=== PATIENT | female | born 1960 | race Asian ===

== ENCOUNTER 2022-07-01 08:21 | Outpatient (REF) | payer OTHER, SELFPAY ==
[2022-07-01 11:32] LABS: MANUAL DIFF FLAG NO
[2022-07-01 11:50] LABS: Basophils Percent Auto 0.6 % (0-2); Eosinophils Absolute Auto 0.1 X10*3/uL (0.0-0.4); Eosinophils Percent Auto 1.6 % (0-4); Hematocrit 40.4 % (37.0-47.0); Hemoglobin 13.4 g/dl (12.0-16.0); Imm Gran Abs Auto 0.02 X10*3/uL (0.00-0.03); Imm Gran Pct Auto 0.3 % (0.0-0.4); Lymphocytes Absolute Auto 2.1 X10*3/uL (1.2-4.9); Lymphocytes Percent Auto 30.5 % (20-40); Mean Corpuscular HGB Conc 33.2 g/dl (31.0-35.0); Mean Corpuscular Hemoglobin 30.7 pg (27.0-33.0); Mean Corpuscular Volume 92.7 fL (80.0-98.0); Mean Platelet Volume 10.5 fL (9.4-12.3); Monocytes Absolute Auto 0.4 X10*3/uL (0.1-1.2); Monocytes Percent Auto 6.1 % (2-11); Neutrophils Absolute Auto 4.3 x10*3/uL (2.0-8.3); Neutrophils Percent Auto 60.9 % (45-73); Platelet Count 424 X10*3/uL (160-400); Red Blood Count 4.36 X10*6/uL (4.20-5.50); Red Cell Distribution Width 13.3 % (11.0-16.0)
[2022-07-01 11:58] LABS: Alanine Aminotransferase 24 U/L (0-31); Albumin Level 4.6 g/dL (3.5-5.0); Alkaline Phosphatase 91 U/L (39-117); Anion Gap 17 (12-20); Aspartate Amino Transferase 22 U/L (5-31); Bilirubin Total 0.7 mg/dL (0.0-1.0); Blood Urea Nitrogen 13 mg/dL (9-16); Calcium 9.5 mg/dL (8.4-10.2); Carbon Dioxide 26 mmol/L (22-29); Chloride 103 mmol/L (96-108); Cholesterol 185 mg/dL; Estimated Glomerular Filt Rate > 60; Glucose Fasting 107 mg/dL (60-99); HDL Cholesterol 65 mg/dL; LDL Cholesterol Calculated 94 mg/dl; Potassium 4.6 mmol/L (3.3-5.1); Sodium 141 mmol/L (135-145); Total Protein 7.9 g/dL (6.5-8.0); Triglycerides 131 mg/dL
[2022-07-01 12:22] LABS: TSH reflex Free T4 1.99 uIU/mL (0.32-4.0)
== END 2022-07-01 08:22 | disposition home or self-care (01) ==
LOC: HO.HMGCLDS 08:21
PROVIDERS: PCP Internal Medicine; Visit Provider Internal Medicine
DX: R01.1 Cardiac murmur, unspecified (principal); I10 Essential (primary) hypertension; E78.5 Hyperlipidemia, unspecified
CPT/HCPCS: 36415; 80053; 80061; 84443; 85025

== ENCOUNTER → 2022-07-13 14:56 | Outpatient (REF) | payer OTHER, SELFPAY ==
--- NOTE | 2022-07-13 14:58 | CA_ITS ---
Transthoracic Echocardiogram Patient (Last, First, Middle): Ibeth Farley, Gender: Female Date of : 1960 Age: 61 Procedure Date: 07/13/2022 Procedure Type: Transthoracic Echocardiogram Location: OP Height: 157.48 cm Weight: 70.31 kg BSA: 1.72 m2 Heart Rate: 70 bpm BP: 144 / 80 mmHg Rare/Endangered Species Specialist: SB Referring MD: Cristel Levine MD Symptoms: R01.1 - Cardiac murmur, unspecified Study Quality: Adequate ECG Rhythm: Sinus Conclusions: - The left ventricular systolic function is normal. The calculated ejection fraction is 67% by biplane method. - No obvious valvular pathology seen on this study. Findings Left Ventricle Normal left ventricular cavity size. There is normal left ventricular wall thickness. The left ventricular systolic function is normal. The calculated ejection fraction is 67% by biplane method. There is no evidence of regional wall motion abnormalities. Diastolic function is normal for age. LV peak GLS -20.5%. Right Ventricle Normal right ventricular cavity size and systolic function. Atria Both atria are normal in size. Aortic Valve There is a normal trileaflet aortic valve. There is no aortic valve stenosis. There is no aortic valve regurgitation. Mitral Valve The mitral valve appears normal. There is trace mitral valve regurgitation. There is no mitral valve stenosis. Pulmonic Valve The pulmonic valve is likely normal. Tricuspid Valve Normal tricuspid valve structure. There is no tricuspid valve regurgitation. Tricuspid regurgitation envelope is inadequate for calculation of right ventricular systolic pressure. Great Vessels The asc aorta is normal in size. Venous The inferior vena cava is normal in size and collapses greater than 50% with inspiration. Pericardium/Pleural There is a trivial pericardial effusion. Prior Study Comparison No prior study available for comparison. Recommendations, Care & Conclusions No obvious valvular pathology seen on this study. Measurements 2D Linear Measurements IVSd: 0.94 0.6-0.9/0.6-1.0 cm LVIDd: 3.78 3.9-5.3/4.2-5.9 cm LVIDd Index: 2.20 2.4-3.2/2.2-3.1 cm/m2 LVIDs: 2.16 2.0-3.6 cm LVPWd: 0.89 0.7-1.1 cm Ao Root: 2.90 2.1-3.5 cm LA Diam: 3.60 2.7-3.8/3.0-4.0 cm LAIDs Index: 2.09 1.5-2.3 cm/m2 LV Mass: 127.16 67-162/88-224 g LV Mass Index: 73.93 43-95/49-115 g/m2 LVOT Diam: 1.90 3.0+(-)1.3 cm 2D Systolic Function EF 4C: 67.60 >55% EF 2C: 66.70 >55% EF BiP: 67.20 >55% Mitral Valve MV Pk E: 0.65 MV PK A: 0.42 MV Decel Time: 222.00 E/A: 1.50 E'Lateral: 9.14 E'Medial: 6.09 E/E' Med: 10.70 E/E' Lat: 7.10 PHT: 65.00 MVA PHT: 3.38 Decel [place]: 2.93 Aortic Valve AoV Pk Ian: 1.25 AoV Pk Grad: 6.00 YASMANI: 2.43 LVOT LVOT Pk Ian: 1.07 LVOT Mn Ian: 0.71 LVOT VTI: 0.25 LVOT Pk Grad: 5.00 LVOT Mn Grad: 2.00 LVOT Diam: 1.90 LVOT Area: 2.84 Diastolic Function MV Pk E: 0.65 MV Pk A: 0.42 E/A: 1.50 E'Medial: 6.09 E/E' Med: 10.70 E' Laterial: 9.14 E/E' Lat: 7.10 Right Ventricle TAPSE (mm): 22.80 TVS' Ian: 11.50 Tricuspid Valve RA Press: 3.00 Great Vessels Aorta Ao Root-2D: 2.90 2.0-3.7 cm Ao Asc: 3.00 2.1-3.4 cm Pulmonary Veins Pulm Vein S/D 1.30 Pulmonary Valve PV Pk Ian: 0.83 Peak PV Grad: 3.00 Updated in Other Vendor System with Status of Final Chandler Neal MD electronically signed on 07/15/2022 12:41:05 PM with status of Final
== END ==
LOC: HO.CARD 14:56
PROVIDERS: Visit Provider Internal Medicine
DX: R01.1 Cardiac murmur, unspecified (principal); I10 Essential (primary) hypertension; E78.5 Hyperlipidemia, unspecified
CPT/HCPCS: 93306; 93356

== ENCOUNTER 2022-10-28 15:27 | Outpatient (REF) | payer OTHER, SELFPAY ==
--- NOTE | ~2022-10-28 | XR_ITS ---
EXAMINATION: XR HIP, RIGHT CLINICAL INFORMATION: 62-year-old female patient with pain in the right hip. COMPARISON: None TECHNIQUE: AP and frog leg lateral views of the right hip. FINDINGS: Juxta articular cortical irregularity) sclerosis involves the medial aspect of the right femoral head. The joint space is relatively well-preserved. There is no evidence of fracture or dislocation. The soft tissues are unremarkable. XR/XR hip RT min 2V IMPRESSION: Juxta articular cortical irregularity of the right femoral head. Early AVN should be considered.
== END 2022-10-28 15:28 | disposition home or self-care (01) ==
LOC: HO.HMGCX 15:27
PROVIDERS: PCP Internal Medicine; Visit Provider Internal Medicine
DX: M25.551 Pain in right hip (principal)
CPT/HCPCS: 73502

== ENCOUNTER 2022-12-08 07:44 | Outpatient (REF) | payer OTHER, SELFPAY ==
--- NOTE | ~2022-12-08 | XR_ITS ---
EXAMINATION: XR PELVIS CLINICAL INFORMATION: Hip pain COMPARISON: Hip radiographs 10/28/2022 TECHNIQUE: AP view of the pelvis. FINDINGS: No acute fracture or dislocation. Hip joint spaces are maintained. The previously described cortical irregularity of the right femoral head was more conspicuous on prior dedicated hip radiographs, and repeat dedicated radiographs of the right hip could be considered if warranted for further evaluation. Soft tissues are unremarkable. XR/XR pelvis 1-2V IMPRESSION: 1. The previously described cortical irregularity of the right femoral head was more conspicuous on prior dedicated hip radiographs, and repeat dedicated radiographs of the right hip could be considered if warranted for further evaluation.
== END 2022-12-08 07:45 | disposition home or self-care (01) ==
LOC: HO.HOSX 07:44
PROVIDERS: Visit Provider Physician Assistant
DX: M70.61 Trochanteric bursitis, right hip (principal)
CPT/HCPCS: 72170; 99202

== ENCOUNTER 2022-12-26 13:39 | Outpatient (REF) | payer OTHER, SELFPAY ==
[2022-12-26 16:26] LABS: MANUAL DIFF FLAG NO
[2022-12-26 16:32] LABS: Basophils Percent Auto 0.5 % (0-2); Eosinophils Absolute Auto 0.1 X10*3/uL (0.0-0.4); Eosinophils Percent Auto 2.4 % (0-4); Hematocrit 41.4 % (37.0-47.0); Hemoglobin 13.5 g/dl (12.0-16.0); Imm Gran Abs Auto 0.01 X10*3/uL (0.00-0.03); Imm Gran Pct Auto 0.2 % (0.0-0.4); Lymphocytes Absolute Auto 2.1 X10*3/uL (1.2-4.9); Lymphocytes Percent Auto 39.2 % (20-40); Mean Corpuscular HGB Conc 32.6 g/dl (31.0-35.0); Mean Corpuscular Hemoglobin 30.5 pg (27.0-33.0); Mean Corpuscular Volume 93.5 fL (80.0-98.0); Mean Platelet Volume 10.4 fL (9.4-12.3); Monocytes Absolute Auto 0.4 X10*3/uL (0.1-1.2); Monocytes Percent Auto 6.8 % (2-11); Neutrophils Absolute Auto 2.8 x10*3/uL (2.0-8.3); Neutrophils Percent Auto 50.9 % (45-73); Platelet Count 371 X10*3/uL (160-400); Red Blood Count 4.43 X10*6/uL (4.20-5.50); Red Cell Distribution Width 13.3 % (11.0-16.0); White Blood Count 5.5 X10*3/uL (4.8-10.8)
[2022-12-26 16:55] LABS: Alanine Aminotransferase 18 U/L (0-31); Albumin Level 4.4 g/dL (3.5-5.0); Alkaline Phosphatase 81 U/L (39-117); Anion Gap 13 (12-20); Aspartate Amino Transferase 20 U/L (5-31); Bilirubin Total 0.6 mg/dL (0.0-1.0); Blood Urea Nitrogen 13 mg/dL (9-16); Calcium 9.8 mg/dL (8.4-10.2); Carbon Dioxide 27 mmol/L (22-29); Chloride 105 mmol/L (96-108); Cholesterol 177 mg/dL; Estimated Glomerular Filt Rate > 60; Glucose Fasting 102 mg/dL (60-99); HDL Cholesterol 64 mg/dL; LDL Cholesterol Calculated 95 mg/dl; Potassium 4.4 mmol/L (3.3-5.1); Sodium 141 mmol/L (135-145); Total Protein 7.4 g/dL (6.5-8.0); Triglycerides 92 mg/dL
[2022-12-26 17:10] LABS: TSH reflex Free T4 0.84 uIU/mL (0.32-4.0)
== END 2022-12-26 13:40 | disposition home or self-care (01) ==
LOC: HO.HMGCLDS 13:39
PROVIDERS: PCP Internal Medicine; Visit Provider Internal Medicine
DX: I10 Essential (primary) hypertension (principal); E78.5 Hyperlipidemia, unspecified
CPT/HCPCS: 36415; 80053; 80061; 84443; 85025

== ENCOUNTER 2023-04-03 14:07 | Outpatient (REF) | payer OTHER, SELFPAY ==
[2023-04-04 02:31] LABS: Anion Gap 13 (12-20); Blood Urea Nitrogen 11 mg/dL (9-16); Calcium 9.4 mg/dL (8.4-10.2); Carbon Dioxide 27 mmol/L (22-29); Chloride 106 mmol/L (96-108); Estimated Glomerular Filt Rate > 60; Glucose Random 102 mg/dL (60-115); Potassium 4.7 mmol/L (3.3-5.1); Sodium 141 mmol/L (135-145)
== END 2023-04-03 14:08 | disposition home or self-care (01) ==
LOC: HO.HMGCLDS 14:07
PROVIDERS: PCP Internal Medicine; Visit Provider Internal Medicine
DX: I10 Essential (primary) hypertension (principal)
CPT/HCPCS: 36415; 80048

== ENCOUNTER 2023-04-05 13:42 | Outpatient (AMB) | payer OTHER, SELFPAY ==
[2023-04-05 13:43] VITALS: BP 136/80; PULSE 70; O2SAT 98; BMI 26.7
--- NOTE | 2023-04-05 13:43 | A.OFFPC_ITS ---
Vital Signs 04/05/23 13:43 Height 5 ft 2 in Weight 146 lb BMI 26.7 BP 136/80 Blood Pressure Location Lt brachial Position Sitting Pulse 70 Pulse Source Pulse Oximeter Pulse Oximetry (%) 98 Oxygen Delivery Method Room Air Intake Visit Reasons: 3 month follow up labs Intake Note: Pt is here today for 3 months follow up visit on labs. Allergies No Known Allergies [No Known Allergies*] Allergy (Verified 04/05/23 13:48) Medication List - Last Reconciled 04/05/23 by Cristel Levine MD amlodipine 5 mg PO DAILY atorvastatin 20 mg PO DAILY metoprolol succinate ER 100 mg PO DAILY valsartan 160 mg PO DAILY Tobacco use date assessed: 04/05/23 Dental Screening Dental Screen Date: 04/05/23 Did you have a dental visit in the last 12 months?: Yes Did you have a dental problem in the last 6 months where you did not have access to dental care?: No Was dental information given to patient?: Patient has dentist HPI 3 month follow up labs HPI Details Patient presents for the follow-up on hypertension and hyperlipidemia [facility] Medical History High blood pressure High cholesterol Family History Brother Mental health disorder Mother Ovarian ca Social History Household Members Other:: , 1 adult son, disabled Housing: House Patient Tobacco Use Status: Never used Tobacco e-Cigarette/Vaping Use: Never Used Current occupational status: disabled Cognitive needs: No Hearing needs: No Vision needs: Yes Questionnaire PHQ-9 Over the last 2 weeks, how often have you been bothered by any of the following problems? 1. Little interest or pleasure in doing things: nearly every day 2. Feeling down, depressed, or hopeless: several days 3. Trouble falling or staying asleep, or sleeping too much: nearly every day 4. Feeling tired or having little energy: nearly every day 5. Poor appetite or overeating: several days 6. Feeling bad about yourself - or that you are a failure or have let yourself or your family down: several days 7. Trouble concentrating on things, such as reading the newspaper or watching television: several days 8. Moving or speaking so slowly that other people could have noticed. Or the opposite - being so fidgety or restless that you have been moving around a lot more than usual: not at all 9. Thoughts that you would be better off or of hurting yourself in some way: not at all Total score: 13 Depression Screening Interpretation: Negative Source: Developed by Drs. Russell Lockett, Sharmila De Leon, Aaron Morataya and colleagues, with an educational mora from [employer]. Thrive Questionnaire Date Thrive assessed: 04/05/23 I am a: Patient What is your living situation today?: I have a steady place to live Within the past 12 months, did the food you bought not last and you didn't have the money to get more?: Never true Within the past 12 months, did you worry whether your food would run out before you got money to buy more?: Never true Do you have trouble getting transportation to medical appointments?: No Do you have trouble paying your heating and electricity bill?: No Do you have trouble taking care of your child, family member or friend?: No Do you have trouble with day-to-day activities such as bathing, preparing meals, shopping, managing finances, etc.?: No Are you currently unemployed and looking for a job?: No Are you interested in more education?: No Please select the resources that you would like help with: None Currently or been in a relationship where the following occur: no concerns reported AUDIT C Alcohol Use Questionnaire (AUDIT-C) 1. How often do you have a drink containing alcohol?: Never 3. How often do you have six or more drinks on one occasion?: Never Total Score: 0 VICKI-7 AMB Questionnaire VICKI-7 Date VICKI - 7 assessed: 04/05/23 Feeling nervous, anxious, or on edge: 0 = Not at all Not being able to stop or control worryin = Not at all Worrying too much about different things: 0 = Not at all Trouble relaxin = Not at all Being so restless that it is hard to sit still: 0 = Not at all Becoming easily annoyed or irritable: 0 = Not at all Feeling afraid as if something awful might happen: 0 = Not at all Total VICKI-7 score (0-4 normal; 5-9 mild; 10-14 moderate; 15-21 severe): 0 Source: Developed by Drs. Russell Lockett, Sharmila De Leon, Aaron Morataya and colleagues, with an educational mora from [employer]. Review of Systems Const All systems reviewed & are unremarkable except as noted in HPI and below Reports no additional complaints Eyes Reports no additional complaints ENT Reports no additional complaints Card Reports no additional complaints Resp Reports no additional complaints GI Reports no additional complaints Reports no additional complaints Physical exam (Primary Care) Vital Signs: Last Vital Signs Pulse 70 04/05/23 13:43 BP 136/80 04/05/23 13:43 Pulse Ox 98 04/05/23 13:43 Oxygen Delivery Method Room Air 04/05/23 13:43 BMI result Body Mass Index 26.7 Tobacco/Smoking Status: Tobacco use Status Tobacco use date assessed 04/05/23 04/05/23 13:50 Patient Tobacco Use Status Never used Tobacco 04/05/23 13:50 e-Cigarette/Vaping Use Never Used 04/05/23 13:43 PHQ-9: PHQ-9 Score PHQ-9: Total score 13 04/05/23 13:52 Depression Screening Interpretation: Negative Thrive Assessment: Date of Thrive Assessment Date Thrive assessed 04/05/23 04/05/23 13:52 Currently or been in a relationship where the following occur: no concerns reported Const General: no acute distress HENMT Throat: Yes posterior oropharynx normal Resp Effort & Inspection: normal respiratory effort Auscultation: clear to auscultation bilaterally Cardio Rhythm: regular rhythm Heart sounds: S1 normal heart sound present and S2 normal heart sound present GI Inspection: Yes normal to inspection Palpation (GI): Soft to palpation Percussion: Yes normal to percussion Auscultation: normal bowel sounds Assessment and Plan Assessment & Plan (1) Hx of colonoscopy: Comment: 2015, Dr. Huerta Code(s): Z98.890 - Other specified postprocedural states (2) HTN (hypertension): Code(s): I10 - Essential (primary) hypertension Plan: Add 5 mg of amlodipine to current medications, follow-up in June for physical with fasting labs before (3) Hyperlipidemia: Code(s): E78.5 - Hyperlipidemia, unspecified Plan: Continue statin low-cholesterol Orders: Orders Comprehensive [place]. Panel Fast 3 Months E78.5 - Hyperlipidemia, unspecified, I10 - Essential (primary) hypertension Lipid Panel 3 Months E78.5 - Hyperlipidemia, unspecified, I10 - Essential (primary) hypertension Complete Blood Count Auto Diff 3 Months E78.5 - Hyperlipidemia, unspecified, I10 - Essential (primary) hypertension Medications: New amlodipine 5 mg PO DAILY 90 tabs 0RF Coding Level of Care Code Est Pt Level 3 (44542) Diagnoses Hx of colonoscopy Z98.890 HTN (hypertension) I10 Hyperlipidemia E78.5
== END 2023-04-05 14:24 | disposition home or self-care (01) ==
PROVIDERS: Visit Provider Internal Medicine
DX: Z98.890 Other specified postprocedural states (principal); I10 Essential (primary) hypertension; E78.5 Hyperlipidemia, unspecified
CPT/HCPCS: 99213

== ENCOUNTER 2023-06-12 13:36 | Outpatient (REF) | payer OTHER, SELFPAY ==
[2023-06-12 16:32] LABS: MANUAL DIFF FLAG NO
[2023-06-12 16:51] LABS: Alanine Aminotransferase 24 U/L (0-31); Albumin Level 4.2 g/dL (3.5-5.0); Alkaline Phosphatase 84 U/L (39-117); Anion Gap 11 (12-20); Aspartate Amino Transferase 23 U/L (5-31); Bilirubin Total 0.5 mg/dL (0.0-1.0); Blood Urea Nitrogen 13 mg/dL (9-16); Calcium 9.5 mg/dL (8.4-10.2); Carbon Dioxide 27 mmol/L (22-29); Chloride 106 mmol/L (96-108); Cholesterol 163 mg/dL (<200); Estimated Glomerular Filt Rate > 60; Glucose Fasting 100 mg/dL (60-99); HDL Cholesterol 59 mg/dL (>40); LDL Cholesterol Calculated 79 mg/dL (<100); Potassium 3.8 mmol/L (3.3-5.1); Sodium 140 mmol/L (135-145); Total Protein 7.4 g/dL (6.5-8.0); Triglycerides 127 mg/dL (<150)
[2023-06-12 16:54] LABS: Basophils Percent Auto 0.7 % (0-2); Eosinophils Absolute Auto 0.2 X10*3/uL (0.0-0.4); Eosinophils Percent Auto 2.7 % (0-4); Hemoglobin 12.9 g/dl (12.0-16.0); Imm Gran Abs Auto 0.01 X10*3/uL (0.00-0.03); Imm Gran Pct Auto 0.2 % (0.0-0.4); Lymphocytes Absolute Auto 2.2 X10*3/uL (1.2-4.9); Lymphocytes Percent Auto 36.3 % (20-40); Mean Corpuscular HGB Conc 33.1 g/dl (31.0-35.0); Mean Corpuscular Hemoglobin 30.5 pg (27.0-33.0); Mean Corpuscular Volume 92.2 fL (80.0-98.0); Mean Platelet Volume 10.2 fL (9.4-12.3); Monocytes Absolute Auto 0.4 X10*3/uL (0.1-1.2); Monocytes Percent Auto 6.8 % (2-11); Neutrophils Absolute Auto 3.2 x10*3/uL (2.0-8.3); Neutrophils Percent Auto 53.3 % (45-73); Platelet Count 387 X10*3/uL (160-400); Red Blood Count 4.23 X10*6/uL (4.20-5.50); Red Cell Distribution Width 13.4 % (11.0-16.0); White Blood Count 5.9 X10*3/uL (4.8-10.8)
== END 2023-06-12 13:37 | disposition home or self-care (01) ==
LOC: HO.HMGCLDS 13:36
PROVIDERS: PCP Internal Medicine; Visit Provider Internal Medicine
DX: I10 Essential (primary) hypertension (principal); E78.5 Hyperlipidemia, unspecified
CPT/HCPCS: 36415; 80053; 80061; 85025

== ENCOUNTER 2023-07-17 11:18 | Outpatient (AMB) | payer OTHER, SELFPAY ==
[2023-07-17 11:38] VITALS: BP 122/78; PULSE 74; O2SAT 100; BMI 27.1
--- NOTE | 2023-07-17 11:38 | A.OFFPC_ITS ---
Vital Signs 07/17/23 11:38 Height 5 ft 2 in Weight 148 lb BMI 27.1 BP 122/78 Blood Pressure Location Lt brachial Position Sitting Pulse 74 Pulse Source Pulse Oximeter Pulse Oximetry (%) 100 Oxygen Delivery Method Room Air Intake Visit Reasons: Annual PE Intake Note: Pt is here today for PE. Allergies No Known Allergies [No Known Allergies*] Allergy (Verified 07/17/23 11:43) Medication List - Last Reconciled 07/17/23 by Cristel Levine MD amlodipine 5 mg PO DAILY atorvastatin 20 mg PO DAILY metoprolol succinate ER 100 mg PO DAILY valsartan 160 mg PO DAILY Tobacco use date assessed: 07/17/23 Dental Screening Dental Screen Date: 07/17/23 Did you have a dental visit in the last 12 months?: Yes Did you have a dental problem in the last 6 months where you did not have access to dental care?: No Was dental information given to patient?: Patient has dentist HPI Annual PE HPI Details Pt presents for PE. PFSH Medical History High blood pressure High cholesterol Family History Brother Mental health disorder Mother Ovarian ca Household Members Other:: , 1 adult son, disabled Housing: House Patient Tobacco Use Status: Never used Tobacco e-Cigarette/Vaping Use: Never Used Current occupational status: disabled Cognitive needs: No Hearing needs: No Vision needs: Yes Questionnaire Thrive Questionnaire Date Thrive assessed: 04/05/23 VICKI-7 AMB Questionnaire VICKI-7 Date VICKI - 7 assessed: 04/05/23 Source: Developed by Drs. Russell Lockett, Sharmila De Leon, Aaron Morataya and colleagues, with an educational mora from [employer]. Review of Systems Const All systems reviewed & are unremarkable except as noted in HPI and below Reports no additional complaints Eyes Reports no additional complaints ENT Reports no additional complaints Card Reports no additional complaints Resp Reports no additional complaints GI Reports no additional complaints Reports no additional complaints Physical exam (Primary Care) Vital Signs: Last Vital Signs Pulse 74 07/17/23 11:38 BP 122/78 07/17/23 11:38 Pulse Ox 100 07/17/23 11:38 Oxygen Delivery Method Room Air 07/17/23 11:38 BMI result Body Mass Index 27.1 Tobacco/Smoking Status: Tobacco use Status Tobacco use date assessed 07/17/23 07/17/23 11:46 Patient Tobacco Use Status Never used Tobacco 07/17/23 11:46 e-Cigarette/Vaping Use Never Used 07/17/23 11:46 Thrive Assessment: Date of Thrive Assessment Date Thrive assessed 04/05/23 07/17/23 11:46 Const General: no acute distress HENMT Head: Yes normal to inspection General nose exam: Normal external nose present Face and sinus: Yes normal facial exam Throat: Yes posterior oropharynx normal Eyes General: appearance normal, both eyes and all related structures Neck Neck: Yes no lymphadenopathy and Yes supple Resp Effort & Inspection: normal respiratory effort Auscultation: clear to auscultation bilaterally Cardio Rhythm: regular rhythm Heart sounds: S1 normal heart sound present and S2 normal heart sound present GI Inspection: Yes normal to inspection Palpation (GI): Soft to palpation Percussion: Yes normal to percussion Auscultation: normal bowel sounds Office Procedures Flu Questionnaire Does the patient have a severe egg allergy?: No Does the patient have severe life threatening allergies?: No Does the patient have a fever or illness today?: No Has the patient ever had Guillain-[place] Syndrome?: No Has the patient ever had any past reaction to a flu shot?: No Immunizations flu vacc [id number] 6mos up(PF) 60 mcg(15 mcgx4)/0.5 mL IM syringe Performing Provider: Cristel Levine MD Performing Location: [facility] Administered by: NASIM Garcia on 07/17/23 11:53 Dose Route Admin Location Dispensed Lot Number Expiration Date NDC [employer] 0.5 mL IM Left Deltoid 0.5 mL [id number] 02/18/24 [id number] [employer] VIS Given Date VIS Provided VIS Publication Date 07/17/23 Single Vaccine 21 Eligibility Eligibility Date Funding Source Not VFC Eligible 07/17/23 Private Assessment and Plan Assessment & Plan (1) Hx of colonoscopy: Comment: Dr. Bradley Byrd Code(s): Z98.890 - Other specified postprocedural states (2) Hx of screening mammography: Comment: [facility] 2021 Code(s): Z92.89 - Personal history of other medical treatment (3) HTN (hypertension): Code(s): I10 - Essential (primary) hypertension Plan: cont current meds, f/u 6 months (4) Hyperlipidemia: Code(s): E78.5 - Hyperlipidemia, unspecified Plan: cont statin (5) Annual physical exam: Code(s): Z00.00 - Encounter for general adult medical examination without abnormal findings Plan: well balanced diet, regular exercise discussed Orders: Orders Influenza [id number] Immunization Today Z23 - Encounter for immunization Medications: Refilled metoprolol succinate ER 100 mg PO DAILY 90 tabs 3RF atorvastatin 20 mg PO DAILY 90 tabs 3RF amlodipine 5 mg PO DAILY 90 tabs 3RF valsartan 160 mg PO DAILY 90 tabs 3RF Coding Level of Care Code Est Pt Prev Care 40-64y(41512) Diagnoses Hx of colonoscopy Z98.890 Hx of screening mammography Z92.89 HTN (hypertension) I10 Hyperlipidemia E78.5 Annual physical exam Z00.00
== END 2023-07-17 12:45 | disposition home or self-care (01) ==
PROVIDERS: Visit Provider Internal Medicine
DX: Z00.00 Encounter for general adult medical examination without abnormal findings (principal); Z98.890 Other specified postprocedural states; Z92.89 Personal history of other medical treatment; Z23 Encounter for immunization; I10 Essential (primary) hypertension; E78.5 Hyperlipidemia, unspecified
CPT/HCPCS: 90471; 90686; 99396

== ENCOUNTER 2024-01-16 09:38 | Outpatient (AMB) | payer OTHER, SELFPAY ==
[2024-01-16 09:55] VITALS: BP 134/66; PULSE 78; O2SAT 97; BMI 26.5
--- NOTE | 2024-01-16 09:55 | MHC.PC.OV ---
Vital Signs 01/16/24 09:55 Height 5 ft 2 in Weight 145 lb BMI 26.5 BP 134/66 Blood Pressure Location Rt brachial Position Sitting Pulse 78 Pulse Source Pulse Oximeter Pulse Oximetry (%) 97 Oxygen Delivery Method Room Air Intake Visit Reasons: 6 Month follow up Intake Note: Pt is here today for 6 months follow up visit. Allergies No Known Allergies [No Known Allergies*] Allergy (Verified 01/16/24 10:08) Medication List - Last Reconciled 01/16/24 by Cristel Levine MD amlodipine 5 mg PO DAILY atorvastatin 20 mg PO DAILY metoprolol succinate ER 100 mg PO DAILY valsartan 160 mg PO DAILY Tobacco use date assessed: 01/16/24 Dental Screening Dental Screen Date: 01/16/24 Did you have a dental visit in the last 12 months?: Yes Did you have a dental problem in the last 6 months where you did not have access to dental care?: No Was dental information given to patient?: Patient has dentist HPI 6 Month follow up HPI Details Pt presents for f/u HTN and hyperlipid, stable on meds. COUNTS INCLUDE 234 BEDS AT [facility] Medical History (Updated 01/16/24 @ 11:01 by Cristel Levine MD) High blood pressure High cholesterol Surgical History Hx of hemorrhoidectomy Family History Brother Mental health disorder Mother Ovarian ca Social History Household Members Other:: , 1 adult son, disabled Housing: House Patient Tobacco Use Status: Never used Tobacco e-Cigarette/Vaping Use: Never Used service: No Current occupational status: disabled Cognitive needs: No Hearing needs: No Vision needs: Yes Questionnaire PHQ-9 Over the last 2 weeks, how often have you been bothered by any of the following problems? 1. Little interest or pleasure in doing things: several days 2. Feeling down, depressed, or hopeless: several days 3. Trouble falling or staying asleep, or sleeping too much: several days 4. Feeling tired or having little energy: nearly every day 5. Poor appetite or overeating: not at all 6. Feeling bad about yourself - or that you are a failure or have let yourself or your family down: several days 7. Trouble concentrating on things, such as reading the newspaper or watching television: not at all 8. Moving or speaking so slowly that other people could have noticed. Or the opposite - being so fidgety or restless that you have been moving around a lot more than usual: not at all 9. Thoughts that you would be better off or of hurting yourself in some way: not at all Total score: 7 Depression Screening Interpretation: Negative Depression Screening Done: Yes Source: Developed by Drs. Russell Lockett, Sharmila De Leon, Aaron Morataya and colleagues, with an educational mora from [employer]. Thrive Questionnaire Date Thrive assessed: 01/16/24 I am a: Patient What is your living situation today?: I have a steady place to live Within the past 12 months, did the food you bought not last and you didn't have the money to get more?: Never true Within the past 12 months, did you worry whether your food would run out before you got money to buy more?: Never true Do you have trouble paying for medicines?: No Do you have trouble getting transportation to medical appointments?: No Do you have trouble paying your heating and electricity bill?: No Do you have trouble taking care of your child, family member or friend?: No Do you have trouble with day-to-day activities such as bathing, preparing meals, shopping, managing finances, etc.?: No Are you currently unemployed and looking for a job?: No Are you interested in more education?: No Please select the resources that you would like help with: Care for elder or disabled THRIVE Score: 0 AUDIT C Alcohol Use Questionnaire (AUDIT-C) 1. How often do you have a drink containing alcohol?: Never 3. How often do you have six or more drinks on one occasion?: Never Total Score: 0 VICKI-7 AMB Questionnaire VICKI-7 Date VICKI - 7 assessed: 01/16/24 Feeling nervous, anxious, or on edge: 0 = Not at all Not being able to stop or control worryin = Several days Worrying too much about different things: 1 = Several days Trouble relaxin = Several days Being so restless that it is hard to sit still: 0 = Not at all Becoming easily annoyed or irritable: 1 = Several days Feeling afraid as if something awful might happen: 1 = Several days Total VICKI-7 score (0-4 normal; 5-9 mild; 10-14 moderate; 15-21 severe): 5 Source: Developed by Drs. Russell Lockett, Sharmila De Leon, Aaron Morataya and colleagues, with an educational mora from [employer]. Review of Systems Const All systems reviewed & are unremarkable except as noted in HPI and below Eyes Reports no additional complaints ENT Reports no additional complaints Card Reports no additional complaints Resp Reports no additional complaints GI Reports no additional complaints Physical exam (Primary Care) Vital Signs: Last Vital Signs Pulse 78 01/16/24 09:55 BP 134/66 01/16/24 09:55 Pulse Ox 97 01/16/24 09:55 Oxygen Delivery Method Room Air 01/16/24 09:55 BMI result Body Mass Index 26.5 Tobacco/Smoking Status: Tobacco use Status Tobacco use date assessed 01/16/24 01/16/24 10:11 Patient Tobacco Use Status Never used Tobacco 01/16/24 10:11 e-Cigarette/Vaping Use Never Used 01/16/24 09:55 PHQ-9: PHQ-9 Score PHQ-9: Total score 7 01/16/24 10:13 Depression Screening Interpretation: Negative Thrive Assessment: Date of Thrive Assessment Date Thrive assessed 01/16/24 01/16/24 10:13 Const General: no acute distress HENMT Face and sinus: Yes normal facial exam Throat: Yes posterior oropharynx normal Neck Neck: Yes supple Resp Effort & Inspection: normal respiratory effort Auscultation: clear to auscultation bilaterally Cardio Rhythm: regular rhythm Heart sounds: S1 normal heart sound present and S2 normal heart sound present Assessment and Plan Assessment & Plan (1) HTN (hypertension): Code(s): I10 - Essential (primary) hypertension Plan: Continue current medications (2) Hyperlipidemia: Code(s): E78.5 - Hyperlipidemia, unspecified Plan: Continue statin, return for physical in 6 months Orders: Orders UA w Microscopic 6 Months E78.5 - Hyperlipidemia, unspecified, I10 - Essential (primary) hypertension MM screening mammo BI Today Z12.31 - Encounter for screening mammogram for malignant neoplasm of breast Comprehensive [place]. Panel Fast 6 Months E78.5 - Hyperlipidemia, unspecified, I10 - Essential (primary) hypertension Complete Blood Count Auto Diff 6 Months E78.5 - Hyperlipidemia, unspecified, I10 - Essential (primary) hypertension Lipid Panel 6 Months E78.5 - Hyperlipidemia, unspecified, I10 - Essential (primary) hypertension TSH reflex Free T4 6 Months E78.5 - Hyperlipidemia, unspecified, I10 - Essential (primary) hypertension Coding Level of Care Code Est Pt Level 3 (72884) Diagnoses HTN (hypertension) I10 Hyperlipidemia E78.5
== END 2024-01-16 11:03 | disposition home or self-care (01) ==
PROVIDERS: PCP Internal Medicine; Visit Provider Internal Medicine
DX: I10 Essential (primary) hypertension (principal); E78.5 Hyperlipidemia, unspecified
CPT/HCPCS: 99213

== ENCOUNTER 2024-02-02 12:09 | Outpatient (REF) | payer OTHER, SELFPAY ==
--- NOTE | ~2024-02-02 | MM_ITS ---
EXAMINATION: MM SCREENING DIGITAL BREAST TOMOSYNTHESIS, BILATERAL CLINICAL INFORMATION: Screening. Asymptomatic. COMPARISON: Mammography: Prior mammograms were not able to be obtained for comparison. TECHNIQUE: Digital breast tomosynthesis is performed in both the craniocaudal and mediolateral oblique views along with computer-aided detection (CAD). Synthesized 2D images are generated from the tomosynthesis. FINDINGS: There are scattered areas of fibroglandular density (ACR BI-RADS breast composition Category b). There are no significant masses, abnormal calcifications, or other abnormalities. MM/MM tomosynthesis screening BI IMPRESSION: No mammographic evidence of malignancy. ASSESSMENT: BI-RADS BI-RADS 1 - Negative RECOMMENDATION: Routine annual mammography screening. 1 year F/U This examination should not preclude the clinical evaluation of a suspicious palpable abnormality. This patient's information was entered into a reminder system with a target due date for their next mammogram.
== END 2024-02-02 12:10 | disposition home or self-care (01) ==
LOC: HO.MAMMO 12:09
PROVIDERS: PCP Internal Medicine; Visit Provider Internal Medicine
DX: Z12.31 Encounter for screening mammogram for malignant neoplasm of breast (principal)
CPT/HCPCS: 77063; 77067

== ENCOUNTER → 2024-02-02 12:45 | Outpatient (BNV) | payer OTHER, SELFPAY | PROVIDERS: PCP Internal Medicine; Visit Provider Radiology Diagnostic Radiology | DX: Z12.31 Encounter for screening mammogram for malignant neoplasm of breast (principal) | CPT/HCPCS: 77063; 77067 ==

== ENCOUNTER 2024-07-24 13:47 | Outpatient (REF) | payer OTHER, SELFPAY ==
[2024-07-24 16:08] LABS: MANUAL DIFF FLAG NO
[2024-07-24 16:14] LABS: Basophils Percent Auto 0.6 % (0-2); Eosinophils Absolute Auto 0.1 X10*3/uL (0.0-0.4); Eosinophils Percent Auto 1.9 % (0-4); Hematocrit 40.9 % (37.0-47.0); Hemoglobin 13.4 g/dl (12.0-16.0); Imm Gran Abs Auto 0.02 X10*3/uL (0.00-0.03); Imm Gran Pct Auto 0.3 % (0.0-0.4); Mean Corpuscular HGB Conc 32.8 g/dl (31.0-35.0); Mean Corpuscular Hemoglobin 30.5 pg (27.0-33.0); Mean Corpuscular Volume 93.2 fL (80.0-98.0); Mean Platelet Volume 10.3 fL (9.4-12.3); Monocytes Absolute Auto 0.4 X10*3/uL (0.1-1.2); Monocytes Percent Auto 6.1 % (2-11); Neutrophils Absolute Auto 3.6 x10*3/uL (2.0-8.3); Neutrophils Percent Auto 58.1 % (45-73); Platelet Count 383 X10*3/uL (160-400); Red Blood Count 4.39 X10*6/uL (4.20-5.50); White Blood Count 6.2 X10*3/uL (4.8-10.8)
[2024-07-24 16:41] LABS: Alanine Aminotransferase 15 U/L (0-31); Albumin Level 4.4 g/dL (3.5-5.0); Alkaline Phosphatase 96 U/L (39-117); Anion Gap 13 (12-20); Aspartate Amino Transferase 29 U/L (5-31); Bilirubin Total 0.5 mg/dL (0.0-1.0); Blood Urea Nitrogen 13 mg/dL (9-16); Calcium 9.5 mg/dL (8.4-10.2); Carbon Dioxide 27 mmol/L (22-29); Chloride 104 mmol/L (96-108); Cholesterol 168 mg/dL (<200); Estimated Glomerular Filt Rate > 60; Glucose Fasting 103 mg/dL (60-99); HDL Cholesterol 68 mg/dL (>40); LDL Cholesterol Calculated 81 mg/dL (<100); Potassium 4.2 mmol/L (3.3-5.1); Sodium 140 mmol/L (135-145); Total Protein 7.7 g/dL (6.5-8.0); Triglycerides 96 mg/dL (<150)
[2024-07-24 16:58] LABS: TSH reflex Free T4 1.26 uIU/mL (0.32-4.0)
== END 2024-07-24 13:48 | disposition home or self-care (01) ==
LOC: HO.HMGCLDS 13:47
PROVIDERS: PCP Internal Medicine; Visit Provider Internal Medicine
DX: Z00.00 Encounter for general adult medical examination without abnormal findings (principal); Z23 Encounter for immunization; E78.5 Hyperlipidemia, unspecified; I10 Essential (primary) hypertension; E55.9 Vitamin D deficiency, unspecified
CPT/HCPCS: 36415; 80053; 80061; 84443; 85025; 90471; 90656; 99396

== ENCOUNTER 2024-07-24 13:47 | Outpatient (AMB) | payer OTHER, SELFPAY ==
--- NOTE | 2024-07-24 13:51 | A.OFFPC_ITS ---
Vital Signs 07/24/24 13:53 Height 5 ft 2 in Weight 148 lb BMI 27.1 BP 138/80 Blood Pressure Location Lt brachial Position Sitting Pulse 78 Pulse Source Pulse Oximeter Pulse Oximetry (%) 98 Oxygen Delivery Method Room Air Intake Visit Reasons: Annual PE/Needs later in afternoon Intake Note: Pt is here today for her PE Allergies No Known Allergies [No Known Allergies*] Allergy (Verified 07/24/24 13:54) Medication List - Last Reconciled 07/24/24 by Cristel Levine MD amlodipine 5 mg PO DAILY atorvastatin 20 mg PO DAILY metoprolol succinate ER 100 mg PO DAILY valsartan 160 mg PO DAILY Tobacco use date assessed: 07/24/24 Dental Screening Dental Screen Date: 07/24/24 Did you have a dental visit in the last 12 months?: No Did you have a dental problem in the last 6 months where you did not have access to dental care?: No Was dental information given to patient?: Patient has dentist HPI Annual PE/Needs later in afternoon HPI Details Pt presents for PE. PFSH Medical History High blood pressure High cholesterol Surgical History Hx of hemorrhoidectomy Family History Brother Mental health disorder Mother Ovarian ca Social History Household Members Other:: , 1 adult son, disabled Housing: House Patient Tobacco Use Status: Never used Tobacco e-Cigarette/Vaping Use: Never Used service: No Current occupational status: disabled Cognitive needs: No Hearing needs: No Vision needs: Yes Questionnaire Thrive Questionnaire Date Thrive assessed: 07/17/24 I am a: Patient What is your living situation today?: I have a steady place to live Within the past 12 months, did the food you bought not last and you didn't have the money to get more?: Never true Within the past 12 months, did you worry whether your food would run out before you got money to buy more?: Never true Do you have trouble paying for medicines?: No Do you have trouble getting transportation to medical appointments?: No Do you have trouble paying your heating and electricity bill?: No Do you have trouble taking care of your child, family member or friend?: No Do you have trouble with day-to-day activities such as bathing, preparing meals, shopping, managing finances, etc.?: No Are you currently unemployed and looking for a job?: No Are you interested in more education?: No Currently or been in a relationship where the following occur: No concerns reported THRIVE Score: 0 AUDIT C Alcohol Use Questionnaire (AUDIT-C) 1. How often do you have a drink containing alcohol?: Never Total Score: 0 VICKI-7 AMB Questionnaire VICKI-7 Date VICKI - 7 assessed: 01/16/24 Feeling nervous, anxious, or on edge: 0 = Not at all Not being able to stop or control worryin = Not at all Worrying too much about different things: 0 = Not at all Trouble relaxin = Not at all Being so restless that it is hard to sit still: 0 = Not at all Becoming easily annoyed or irritable: 0 = Not at all Feeling afraid as if something awful might happen: 0 = Not at all Total VICKI-7 score (0-4 normal; 5-9 mild; 10-14 moderate; 15-21 severe): 0 Source: Developed by Drs. Russell Lockett, Sharmila De Leon, Aaron Morataya and colleagues, with an educational mora from [employer]. Review of Systems Const All systems reviewed & are unremarkable except as noted in HPI and below Reports no additional complaints Eyes Reports no additional complaints ENT Reports no additional complaints Card Reports no additional complaints Resp Reports no additional complaints GI Reports no additional complaints Reports no additional complaints Physical exam (Primary Care) Vital Signs: Last Vital Signs Pulse 78 07/24/24 13:53 BP 138/80 07/24/24 13:53 Pulse Ox 98 07/24/24 13:53 Oxygen Delivery Method Room Air 07/24/24 13:53 BMI result Body Mass Index 27.1 Tobacco/Smoking Status: Tobacco use Status Tobacco use date assessed 07/24/24 07/24/24 13:56 Patient Tobacco Use Status Never used Tobacco 07/24/24 13:52 e-Cigarette/Vaping Use Never Used 07/24/24 13:52 Thrive Assessment: Date of Thrive Assessment Date Thrive assessed 07/17/24 07/24/24 13:52 Currently or been in a relationship where the following occur: No concerns reported Const General: no acute distress HENMT Head: Yes normal to inspection Face and sinus: Yes normal facial exam Mouth: Normal oral and palatal mucosa present Eyes General: appearance normal, both eyes and all related structures Neck Neck: Yes no lymphadenopathy and Yes supple Resp Effort & Inspection: normal respiratory effort Auscultation: clear to auscultation bilaterally Cardio Rhythm: regular rhythm Heart sounds: S1 normal heart sound present and S2 normal heart sound present GI Inspection: Yes normal to inspection Palpation (GI): Soft to palpation Percussion: Yes normal to percussion Auscultation: normal bowel sounds Office Procedures Flu Questionnaire Does the patient have a severe egg allergy?: No Does the patient have severe life threatening allergies?: No Does the patient have a fever or illness today?: No Has the patient ever had Guillain-S[place]ando[place] Syndrome?: No Has the patient ever had any past reaction to a flu shot?: No Immunizations Fluarix Triv [id number] (PF) 45 mcg (15 mcg x 3)/0.5 mL IM syringe Performing Provider: Cristel Levine MD [place] [facility] [place] [place] Administered by: Kavon Nicole CMA on 07/24/24 14:18 Dose Route Admin Location Dispensed Lot Number Expiration Date [facility] Paper Products Printer 0.5 mL IM Left Deltoid 0.5 mL [id number] 02/17/25 [id number] [employer] VIS Given Date VIS Provided VIS Publication Date 07/24/24 Single Vaccine 21 Eligibility Eligibility Date Funding Source Not [facility] Eligible 07/24/24 Private Coding Level of Care Code Est Pt Prev Care 40-64y(35017) Diagnoses Annual physical exam Z00.00 Hyperlipidemia E78.5 HTN (hypertension) I10 Vitamin D deficiency E55.9 Assessment & Plan Assessment & Plan (1) Annual physical exam: Code(s): Z00.00 - Encounter for general adult medical examination without abnormal findings Category: Medical Plan: Well-balanced diet regular physical activity discussed with the patient. She is up-to-date with mammogram and will be referred to GI for colonoscopy (2) Hyperlipidemia: Code(s): E78.5 - Hyperlipidemia, unspecified Category: Medical Plan: Continue statin (3) HTN (hypertension): Code(s): I10 - Essential (primary) hypertension Category: Medical Plan: Continue current medications, patient will have a fasting blood work today (4) Vitamin D deficiency: Code(s): E55.9 - Vitamin D deficiency, unspecified Category: Medical Plan: Check vitamin-D level Orders: Orders Influenza [id number] Immunization Today Z23 - Encounter for immunization Complete Blood Count Auto Diff 1 Year E55.9 - Vitamin D deficiency, unspecified, E78.5 - Hyperlipidemia, unspecified, Z00.00 - Encounter for general adult medical examination without abnormal findings Lipid Panel 1 Year E55.9 - Vitamin D deficiency, unspecified, E78.5 - Hype rlipidemia, unspecified, Z00.00 - Encounter for general adult medical examination without abnormal findings TSH reflex Free T4 1 Year E55.9 - Vitamin D deficiency, unspecified, E78.5 - Hyperlipidemia, unspecified, Z00.00 - Encounter for general adult medical examination without abnormal findings Vitamin D 25-OH Total 1 Year E55.9 - Vitamin D deficiency, unspecified, E78.5 - Hyperlipidemia, unspecified, Z00.00 - Encounter for general adult medical examination without abnormal findings Comprehensive [place]. Panel Fast 1 Year E55.9 - Vitamin D deficiency, unspecified, E78.5 - Hyperlipidemia, unspecified, Z00.00 - Encounter for general adult medical examination without abnormal findings Referrals Gastroenterology Referral Z00.00 - Encounter for general adult medical examination without abnormal findings Medications: Refilled amlodipine 5 mg PO DAILY 90 tabs 3RF metoprolol succinate ER 100 mg PO DAILY 90 tabs 3RF atorvastatin 20 mg PO DAILY 90 tabs 3RF valsartan 160 mg PO DAILY 90 tabs 3RF
[2024-07-24 13:53] VITALS: BP 138/80; PULSE 78; O2SAT 98; BMI 27.1
== END 2024-07-24 14:21 | disposition home or self-care (01) ==
LOC: HO.HMCC 13:47
PROVIDERS: PCP Internal Medicine; Visit Provider Internal Medicine
DX: Z00.00 Encounter for general adult medical examination without abnormal findings (principal); E78.5 Hyperlipidemia, unspecified; I10 Essential (primary) hypertension; E55.9 Vitamin D deficiency, unspecified; Z23 Encounter for immunization

== ENCOUNTER 2025-02-03 15:07 | Outpatient (REF) | payer OTHER, SELFPAY ==
--- OUTSIDE RECORDS SUMMARY | 2025-02-03 16:57 | XMS_ITS | Clinical Summary ---
Author Organization [facility] Address [address] [place] [address] Care Team Providers Care Director Biology Name Role Phone Unavailable Primary Care Provider Unavailabl e Source Comments PLEASE NOTE, if this patient is a minor, it may be UNLAWFUL to discuss sensitive information that is contained in these records (such as FAMILY PLANNING, MENTAL HEALTH or SUBSTANCE ABUSE) with the minor patient's parent or other person without the patient's specific authorization.[facility] Immunizations Immunization Administration Dates Next Due Flu, Preservative Free 06/08/2022 MODERNA COVID-19 VACCINE BIV ALENT, BLUE CAP, 6M+ 06/08/2022 PFIZER COVID VACCINE, PURPLE CAP, 12+ ,12/31/2021,08/24/2021,2020 ZOSTER VACCINE, RECOMBINANT (SHINGRIX) 06/08/2022 Social History Tobacco Use Types Packs/Day Years Used Date Smoking Tobacco: Never Assessed Social Connections Answer Date Recorded Social Connections and Isolation 0 03/08/2022 Financial Resource Strain Answer Date R ecorded Financial Resource Strain 0 2021 Stress Answer Date Recorded Stress 0 03/08/2022 Physical Activity Answer Date Recorded Physical Activity 0 03/08/2022 Food Insecurity Answer Date Recorded Food 0 03/08/2022 Transportation Needs Answer Date Record ed Transportation 0 03/08/2022 Housing Stability Answer Date Recorded Housing 0 03/08/2022 Safety and Environment Answer Date Tommie rded Safety 0 03/08/2022 Utilities Answer Date Recorded Utilities 0 03/08/2022 Employment Answer Date Recorded Employment 0 03/08/2022 Comments Unknown Sex and Gender Information Value Date Recorded Sex Assigned at Unknown 06/13/2022 6:15 AM PDT Legal Sex Female 1:19 PM PDT Gender Identity Choose not to disclose 6:15 AM PDT Sexual Orientation Choose not to disclose 2021 6:15 AM PDT Plan of Treatment Health Maintenance Due Date Last Done Comments Anxiety Screening 1961 Diabetes Screening 1961 HPV Screening 1961 Hepatitis C Screening 1961 Lipid Screening 1961 Pap + HPV 1961 Tobacco Screening 1961 HIV Screening 1976 Hypertension Screening (#1) 1979 Imm-DTaP/Tdap/Td (1 - Tdap) 1980 Cervical Cancer Screening 1982 Pap Smear 1982 Breast Cancer Screening (Mammogram) 2001 CT Colonography 2006 Colonoscopy 2006 Colorectal Cancer Screening 2006 FIT/gFOBT 2006 Fecal DNA 2006 Flexible Sigmoidoscopy 2006 Imm-Zoster, Recombinant (2 of 2) 08/03/2022 06/08/20 22 [id number] ( season) 2024 06/08/2022, 03/08/2022, 12/31/2021, Additional history exists Alcohol and Drug Screen 08/21/2024 Depression Annual Screen 08/21/2024 Imm-Influenza (Season Ended) 2025 06/08/2022 Cervical Ablation/Cold-Knife Conization Discontinued Cervical Cryotherapy Discontinued Colposcopy Discontinued Endometrial Biopsy Discontinued Excision/Leep Discontinued HPV Genotyping Discontinued Vaginal Pap Discontinued Vulvoscopy Discontinued Insurance [employer] Member Subscriber Plan / Payer (Ef fective 2022-Present) Name:Ibeth Farley Relation to Subscriber:Self Name:Ibeth Farley Payer ID:[id number] Group ID:Not on file Type:Indemnity Address: [facility] [address] [place] [address]
== END 2025-02-03 15:08 | disposition home or self-care (01) ==
LOC: HO.MAMMO 15:07
PROVIDERS: PCP Internal Medicine; Visit Provider Internal Medicine
DX: Z12.31 Encounter for screening mammogram for malignant neoplasm of breast (principal)
CPT/HCPCS: 77063; 77067

== ENCOUNTER → 2025-02-03 15:30 | Outpatient (BNV) | payer OTHER, SELFPAY | PROVIDERS: PCP Internal Medicine; Visit Provider Internal Medicine | DX: Z12.31 Encounter for screening mammogram for malignant neoplasm of breast (principal) | CPT/HCPCS: 77063; 77067 ==

== ENCOUNTER 2025-02-26 13:47 | Outpatient (AMB) | payer OTHER, SELFPAY ==
--- NOTE | 2025-02-26 13:51 | A.OFFVIS_ITS ---
Vital Signs 02/26/25 13:57 Height 5 ft 2 in Weight 148 lb BMI 27.1 BP 148/78 H Blood Pressure Location Rt brachial Position Sitting Pulse 72 Pulse Source Pulse Oximeter Pulse Oximetry (%) 96 Oxygen Delivery Method Room Air Intake Visit Reasons: [place] screening Intake Note: New pt for recall colo screening. Last colo was well over 10 years ago per pt. Unspecified location. No polyps reported to pt's knowledge. CC; C.O. mild to moderate stool changes. Pt denies any constipation but does report that her BMs seem smaller . No additional sx or concerns to report per pt. Acting Section Chief Required: No Accompanied by: Self / Same As Patient Allergies No Known Allergies (No Known Allergies*) Allergy (Verified 07/24/24 13:54) HPI HPI [place] screening: Details: 64 year old? 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 Patient was sent to us by her PCP.? Last colonoscopy over 10 years ago. Patient denies any gastrointestinal symptoms in the past or at present.? Denies any personal or family history of gastrointestinal disease, colon polyps, or CRC.? Denies history of difficulty with sedation or anesthesia in the past.? Negative for history of sleep apnea.? Denies any history of cardiac, renal, pulmonary, or hepatic disease.?? No history of infectious diseases like hepatitis A, B, C, HIV or tuberculosis.? Patient is not on any anticoagulation [facility] Medical History High blood pressure High cholesterol Surgical History Hx of hemorrhoidectomy Family History Brother Mental health disorder Mother Ovarian ca Social History Household Members Other:: , 1 adult son, disabled Housing: House Patient Tobacco Use Status: Never used Tobacco e-Cigarette/Vaping Use: Never Used service: No Current occupational status: disabled Cognitive needs: No Hearing needs: No Vision needs: Yes Review of Systems Const Denies weight gain and Denies weight loss ENT Reports no additional complaints, Denies dysphagia and Denies odynophagia Card Reports no additional complaints Resp Reports no additional complaints GI Denies abdominal pain, Denies belching, Denies melena, Denies bloating, Denies change in bowel habits, Denies dysphagia, Denies excessive flatus, Denies dyspepsia, Denies heartburn, Denies diarrhea, Denies loose stools, Denies nausea, Denies odynophagia and Denies vomiting Musc Reports no additional complaints Neuro Reports no additional complaints Psych Reports no additional complaints Endo Reports no additional complaints Physical Exam Vital Signs: BMI result Body Mass Index 27.1 Const Other: Patient ambulating with crutches, patient brought into the room via wheelchair General: healthy appearing, no acute distress and well developed Nutritional Appearance: well nourished Orientation/consciousness: patient oriented x3 Resp Effort & Inspection: normal respiratory effort, able to speak in complete sent ences, no tracheal deviation and symmetric chest movement Auscultation: clear to auscultation bilaterally Cardio Rate: regular rate GI Inspection: Yes normal to inspection and No distended Palpation (GI): Soft to palpation, not firm, nontender and No hepatosplenomegaly present Auscultation: normal bowel sounds General: Yes no CVA tenderness Back/Spine/Pelvis Back: no CVA tenderness Skin General skin exam: elasticity normal, turgor normal and dry skin Neuro General: patient oriented x3 Psych Appearance: grossly normal Mental Status: mental status grossly normal Assessment & Plan Assessment & Plan (1) Hx of colonoscopy: Comment: 2015, Dr. Huerta Code(s): Z98.890 - Other specified postprocedural states Category: Surgical Plan Patient denies any GI, cardiac or respiratory symptoms.? Denies any issues with anesthesia in the past.? Denies any history of sleep apnea.? No history infectious diseases in the past or present.? Not on any anticoagulation therapy.? No family or personal history of colon cancer or polyps.? Patient denies melena, hematochezia, unintentional weight loss or ribbon like stools.? Discussed at length the pre-procedure,? prep, diet & medications as well as what to expect prior, during and after the procedure.?? Stressed the importance of good bowel prep.? Recommended the use of Vaseline or Calmoseptine OTC & baby wipes with bowel movements to promote comfort.? ?Patient verbalizes understanding and agrees to plan of care.? She was given the opportunity to ask questions and all questions answered.? We will see her after the procedure.? Medications: New polyethylene glycol 3350 (Miralax) As directed by gastroenterology department at [facility] 238 grams PO ONCE 238 grams 0RF Z12.11 - Encounter for screening for malignant neoplasm of colon bisacodyl (Dulcolax (bisacodyl)) take 4 tabs at noon the day before your colonoscopy 20 mg (4 x 5 mg) PO ONCE 4 tabs 0RF constipation 1 day Z12.11 - Encounter for screening for malignant neoplasm of colon Coding Level of Care Code New Pt Level 3 (98938) Diagnoses Hx of colonoscopy Z98.890 Time Spent (min) 40 Comment 30 minutes spent with patient and additional 10 minutes spent reviewing her records
[2025-02-26 13:57] VITALS: BP 148/78; PULSE 72; O2SAT 96; BMI 27.1
--- OUTSIDE RECORDS SUMMARY | 2025-02-26 14:35 | XMS_ITS | Clinical Summary ---
Author Organization [facility] Address [address] [place] [address] Care Team Providers Care Wireless Store Manager Name Role Phone Unavailable Primary Care Provider [...] 2006 Fecal DNA 2006 Flexible Sigmoidoscopy 2006 Imm-Pneumococcal 50+ (1 of 1 - PCV) 2011 Imm-Zoster, Recombinant (2 of 2) 08/03/2022 06/08/20 22 [id number] ( season) 2024 06/08/2022, 03/08/2022, 12/31/2021, Additional [...] Farley Payer ID:[id number] Group ID:Not on file Type:Jass Address: [facility] [address] [place] [address]
--- OUTSIDE RECORDS SUMMARY | 2025-02-26 14:36 | XMS_ITS | Patient Health Record ---
Author Organization [facility] Address [address] [place] [address] Support Name Relationship Address Phone OUMAR RODAS Guarantor Unknown Reason For Referral No Information Problems Problem Type SNOMED Code ICD Code Onset Dates Problem Status W/U Status Risk Notes Problem Symptomatic menopausal or female climacteric states (627.2) Active confirmed Diag Problem Gynecological examination normal (938731138977886) Routine gynecological examination (V72.31) Active confirmed Major Plan Of Treatment No Information Insurance Providers Payer Name Payer Address Payer Phone Subscriber Number Group Number Insured Name Patient Relationship to Insured Coverage Start Date Coverage End Date [employer] [address] [place] [address] [id number] OUMAR LONDON Self - patient is the insured
== END 2025-02-26 14:24 | disposition home or self-care (01) ==
LOC: HO.HGI 13:47
PROVIDERS: PCP Internal Medicine; Visit Provider Nurse Practitioner Family
DX: Z98.890 Other specified postprocedural states (principal)
CPT/HCPCS: 99203

== ENCOUNTER 2025-06-04 13:14 | Outpatient (AMB) | payer OTHER, SELFPAY ==
[2025-06-04 13:30] VITALS: BP 142/80; BMI 27.1
--- NOTE | 2025-06-04 13:30 | MHC.OFFVIS ---
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 Currently not sexually active w/. Denies any vaginal dryness or irritation. STI testing offered; she declines. Attempting to eat a healthy diet with calcium and vitamin D and stays active with exercise. Last pap smear; over 14 years ago, negative. Last mammogram; 2024. Colonoscopy is UTD. Family history of ovarian and colon cancer. [facility] Medical History High blood pressure High cholesterol Surgical History Hx of hemorrhoidectomy Family History Brother Mental health disorder Mother Ovarian ca Maternal Grandmother Colon cancer Sister Stomach cancer Social History Household Members Other:: , 1 adult son, disabled Housing: House Patient Tobacco Use Status: Never used Tobacco e-Cigarette/Vaping Use: Never Used service: No Current occupational status: disabled Cognitive needs: No Hearing needs: No Vision needs: Yes Female Reproductive History Menstrual Menopause type: natural Total pregnancies: 1 Full term: 1 Number of Living Children: 1 Date of Mammogram: 02/03/25 Review of Systems Const All systems reviewed & are unremarkable except as noted in HPI and below Reports as per HPI Eyes Reports no additional complaints ENT Reports no additional complaints Card Reports no additional complaints Resp Reports no additional complaints GI Reports as per HPI and Reports no additional complaints Reports as per HPI Musc Reports no additional complaints Skin/Breast Reports as per HPI Neuro Reports no additional complaints Psych Reports no additional complaints Endo Reports no additional complaints Avila/Lymph Reports no additional complaints Aller/Immun Reports no additional complaints Physical Exam Vital Signs: Last Vital Signs BP 142/80 H 06/04/25 13:30 BMI result Body Mass Index 27.1 Const General: cooperative, healthy appearing, no acute distress, well developed and alert Orientation/consciousness: patient oriented x3 HEENT Head: Yes normal to inspection Eyes General: appearance normal, both eyes and all related structures Neck Neck: Yes normal visual inspection Thyroid: Thyroid normal Chest Chest palpation & inspection: normal inspection of the chest and other (no puckering, dimpling, peau de orange, retraction, discharge, masses) Breast/axilla inspection: normal inspection of the breasts Breast/axilla palpation: normal palpation of the breasts Resp Effort & Inspection: normal respiratory effort GI Inspection: Yes normal to inspection Palpation (GI): Soft to palpation Rectal Exam - Female: deferred Other: Two small sebaceous gland left labia, 1 on right labia General: Yes bladder normal to palpation External Female Exam: normal external appearance and normal appearance of the urethra Speculum Exam - Vagina: normal appearance of the vagina, normal palpation, normal vaginal discharge and vagina atrophic Speculum Exam - Cervix: normal appearance of the cervix, normal palpation and Cervical mass present (Small polyp ) Bimanual exam- vagina & uterus: normal bimanual exam, normal palpation, uterine size normal, bladder normal to palpation, normal palpation and non-tender Bimanual Exam- Adnexa, other: no masses Skin General skin exam: no rashes or lesions noted Rashes: no rashes Neuro General: patient oriented x3 Cognition (Neuro): normal cognition Extrem General: Yes normal to inspection Psych Attitude: cooperative Thought process: Normal thought process present Office Procedures Cervical Polypectomy Details Details: Consent for Cervical Polypectomy procedure: The patient is here today for an Cervical Polypectomy. She was counseled regarding anticipatory guidance for the procedure including the risks for pain, infection, bleeding, perforation, potential injury to the tissues may include the cervix, vagina, uterus, tubes, bladder and bowels. These injuries may include further treatment and evaluation including surgery, blood transfusions, antibiotics, hospitalizations and anesthesia. Permanent injury and scarring can occur. She was consented for the procedure, and the consent forms were signed. She is agreeable to have the procedure today. All questions were answered. Polypectomy Procedure: The patient was placed in the dorsal lithotomy position and a sterile speculum inserted. Using aseptic technique for the procedure. The cervix was cleansed with Betadine x 3 swabs. The polyp was grasped with a bosemen and removed in small fragments. The tissue sample was placed in formalin in a patient labeled container by staff assisting and sent to the pathology department for processing and interpretation. Minimal bleeding was observed.The patient tolerate the procedure well and was in good condition when leaving the department. Post Polypectomy Care: There may be some bleeding for several days that is usually light and can turn to a light brown or pink in color. Mild cramping may occur. Nothing in the vagina including: tampons, douching or intimacy for a week. You may take an over the counter mild analgesia like Tylenol or Advil (if no allergies), per the manufacturers recommendations on dosing and frequency. Follow the directions completely. Call the office if any: fever (over 100.4), flu like symptoms, abdominal pain, worsening cramping not resolved with over the counter medications, foul smelling vaginal odor, signs of infected appearing discharge, or heavy bleeding. A follow up for results on the pathology will be made. Please call the office if you have any concerns. This note is constructed using voice recognition software. While every effort has been made to ensure accuracy, reclamation supervisor errors may have been included. CPT: 52190 - Cervical Polypectomy All charges added?: Procedure code (CPT) selection complete Assessment & Plan Assessment & Plan (1) Encounter for well woman exam with routine gynecological exam: Code(s): Z01.419 - Encounter for gynecological examination (general) (routine) without abnormal findings Category: Medical Plan: Discussed: Current recommendations for pap smears per ASCCP guidelines. Breast awareness, periodic self breast exams and yearly mammogram. Maintain a healthy lifestyle, well balanced diet including Calcium 1,200 mg and Vitamin D 600 IU daily, and routine exercise. Contact the office with any postmenopausal bleeding. Patient verbalizes understanding and agrees to the plan of care. She was given opportunity to ask questions and all questions were answered to the best of my ability. RTO in 1 year for annual galvanizer zinc exam. This note is constructed using voice recognition software. While every effort has been made to ensure accuracy, reclamation supervisor errors may have been included. (2) Cervical polyp: Code(s): N84.1 - Polyp of cervix uteri Plan Patient requested cervical polypectomy to be done today due to her her difficulty with ambulation with her medical concerns. See procedure notes. The patient expressed understanding and agreement with the plan of care. All of her questions and concerns were addressed to the best of my ability. Orders: Orders HPV High risk Today Z01.419 - Encounter for gynecological examination (general) (routine) without abnormal findings Pap Smear Today Z01.419 - Encounter for gynecological examination (general) (routine) without abnormal findings Surgical Today N84.1 - Polyp of cervix uteri Coding Level of Care Code New Pt Prev Care 40-64y(60814) Diagnoses Encounter for well woman exam with routine gynecological exam Z01.419 Cervical polyp N84.1 CPT Codes Details - CPT: 33608 - Cervical Polypectomy ([id number]) Comment Add modifier for procedure
--- OUTSIDE RECORDS SUMMARY | 2025-06-04 16:55 | XMS_ITS | Patient Health Record ---
Author Organization [facility] Address [address] [facility] [address] [place] [address] Support Name Relationship Address Phone OUMAR RODAS Guarantor Unknown [phone] Reason For Referral No Information Problems Problem Type SNOMED Code ICD Code Onset Dates Problem Status W/U Status Risk Notes Problem Menopausal symptom (26203020) Symptomatic menopausal or female climacteric states (627.2) Active confirmed Diag Problem Gynecological examination normal (590227172892840) Routine gynecological examination (V72.31) Active confirmed Major Plan Of Treatment No Information Insurance Providers Payer Name Payer Address Payer Phone Subscriber Number Group Number Insured Name Patient Relationship to Insured Coverage Start Date Coverage End Date [address] [place] [address] [phone] [id number] OUMAR LONDON Self - patient is the insured
== END 2025-06-04 14:52 | disposition home or self-care (01) ==
LOC: HO.HWS 13:15
PROVIDERS: PCP Internal Medicine; Visit Provider Advanced Practice Midwife
DX: Z01.419 Encounter for gynecological examination (general) (routine) without abnormal findings (principal); N84.1 Polyp of cervix uteri
CPT/HCPCS: 57500; 99386; 99459

== ENCOUNTER 2025-06-04 13:14 | Outpatient (REF) | payer OTHER, SELFPAY ==
--- OUTSIDE RECORDS SUMMARY | 2025-06-04 18:02 | XMS_ITS | Clinical Summary ---
Author Organization [facility] [address] [facility] [address] Address [address] [place] [address] Phone Care Team Providers Care Architectural Design Professor Name Role Phone Unavailable Primary Care Provider Unavailabl e Encounters Date Type Department Care Team Description 04/02/2025 Telephone Gastroenterology - [address] [address] Cristel Huerta MD from Last [...]
--- OUTSIDE RECORDS SUMMARY | 2025-06-04 18:02 | XMS_ITS | Clinical Summary ---
Author Organization [facility] Address [address] [place] [address] Care Team Providers Care Inseamer Name Role Phone Unavailable Primary Care Provider [...] Drug Screen 08/21/2024 Depression Annual Screen 08/21/2024 [id number] ( season) 2025 06/08/2022, 03/08/2022, 12/31/2021, Additional history exists Imm-Influenza (#1) 2025 06/08/2022 Cervical Ablation/Cold-Knife Conization Discontinued Cervical Cryotherapy Discontinued Colposcopy Discontinued Endometrial Biopsy Discontinued Excision/Leep Discontinued HPV Genotyping Discontinued Vaginal Pap Discontinued Vulvoscopy Discontinued Insurance [employer] Member Subscriber Plan / Payer (Ef fective 2022-Present) Name:Ibeth Farley Relation to Subscriber:Self Name:Ibeth Farley Payer ID:[id number] Group ID:Not on file Type:Jass Address: [facility] [address] [place] [address]
== END 2025-06-04 13:15 | disposition home or self-care (01) ==
LOC: HO.LNP 13:14
PROVIDERS: PCP Internal Medicine; Visit Provider Advanced Practice Midwife
DX: Z01.419 Encounter for gynecological examination (general) (routine) without abnormal findings (principal); N84.1 Polyp of cervix uteri; Z11.51 Encounter for screening for human papillomavirus (HPV); Z80.41 Family history of malignant neoplasm of ovary
CPT/HCPCS: 57500; 87626; 88175; 88305

== ENCOUNTER 2025-06-17 13:00 | Outpatient (AMB) | payer OTHER, SELFPAY ==
--- NOTE | 2025-06-17 13:02 | MHC.OFFVIS ---
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 Lasting Present Accompanied by: Son Allergies No Known Allergies (No Known Allergies*) Allergy (Verified 06/17/25 13:06) Medication List - Last Reconciled 06/17/25 by Rosetta Fitch LPN amlodipine 5 mg PO DAILY atorvastatin 20 mg PO DAILY bisacodyl (Dulcolax (bisacodyl)) 20 mg (4 x 5 mg) PO ONCE 1 day metoprolol succinate ER 100 mg PO DAILY polyethylene glycol 3350 (Miralax) 238 grams PO ONCE valsartan 160 mg PO DAILY Is last menstrual period known: Yes Do you need a note to return to daycare/school/sports/work: No HPI Comments Details: Patient is here today for a follow up on her test results, accompanied by her son. History of recent polypectomy and Pap smear, she had read something online and was concerned that she had high-risk HPV with 1 of her notifications. She bled for 2 days after the polypectomy and has no pain and no other concerns. [facility] Medical History High blood pressure High cholesterol Surgical History Hx of hemorrhoidectomy Family History Brother Mental health disorder Mother Ovarian ca Maternal Grandmother Colon cancer Sister Stomach cancer Social History Household Members Other:: , 1 adult son, disabled Housing: House Patient Tobacco Use Status: Never used Tobacco e-Cigarette/Vaping Use: Never Used service: No Current occupational status: disabled Cognitive needs: No Hearing needs: No Vision needs: Yes Review of Systems Const All systems reviewed & are unremarkable except as noted in HPI and below Endo Reports no additional complaints Physical Exam Const General: cooperative, healthy appearing and no acute distress Psych Appearance: well kempt Attitude: cooperative Thought process: Normal thought process present Results Reviewed Results Reviewed: Gynecologic Cytology [id number] Name: Ibeth Farley Age/Sex: 64/F Attending: Aixa Valladares CNM : 1960 Submitted by: Aixa Valladares CNM Copies to: Cristel Levine MD MR #: [id number] Status: DEP REF Collected: 06/04/25 Location: [facility] Received: 06/05/25 Interpretation Satisfactory for evaluation. Negative for intraepithelial lesion or malignancy. Atrophic. Scant cellularity. HPV High Risk: Negative HPV Genotyping 16: Negative HPV Genotyping 18: Negative Clinical Information LMP: Menopausal Previous PAP test: 14 years, WNL Other history: Encounter for well woman exam with routine gynecological exam Material Received ThinPrep-Cervical Copies To Cristel Levine MD [facility], [place] [address] [place] [address] [address] [facility] Women[facility] Services [address] [place] [address] Drive [address] [place] [address] Electronically Signed By: ELAINE Hinkle (ASCP) 06/09/25 1337 As of June 12, 2024, the technical services to include automated prescreening performed by the ThinPrep Imaging System, PAP screening and HPV testing will be performed at [facility] (CLIA #[id number]), [address] [place] [address]. Testing for HPV was performed using the Arthur JAMES 6800 system. The presence of HPV in the female Patient: Ibeth Farley Age/Sex: 64/F MR#: [id number] Page 1 of 2 Gynecologic Cytology FY23-9848 genital tract is associated with a number of diseases, including cervical carcinoma. The HPV DNA high risk pool tests for HPV 31, 33, 35, 39, 45, 51, 52, 56, 58, 59, 66 and 68. The testing for HPV 16 and 18 genotypes has also been performed. A positive result indicates detection of nucleic acid sequences from one or more subtypes, whereas a negative result indicates such sequences were not detected. All professional services are performed by [facility] ([address] [place] [address], [place] [address]; ; CLIA #[id number]). The PAP Test is a screening procedure with the inherent possibility of both false negative and false positive results. Results should be interpreted in the context of historic and current clinical findings. Reliability of the PAP Test is enhanced by performing the test on a regular repetitive basis. Patient: Ibeth Farley Age/Sex: 64/F MR#: [id number] Page 2 of 2 Surgical Pathology [id number] Name: Ibeth Farley Age/Sex: 64/F Attending: Aixa Valladares CNM : 1960 Submitted by: Aixa Valladares CNM Copies to: Cristel Levine MD MR #: [id number] Status: DEP REF Collected: 06/04/25 Location: [facility] Received: 06/05/25 Diagnosis Cervix, polypectomy: - Scant superficial fragments of endocervical and atrophic squamous epithelium; no atypia identified. - Mucoinflammatory material. - No polyp forming lesion identified. Clinical History Cervical polyp Microscopic Description Microscopic sections reviewed. Material Received Cervical polyp Gross Description Received in formalin labeled ?cervical polyp? are 2 fragments of translucent, mucoid white tissue measuring 0.5 and 0.6 cm in greatest dimension which are wrapped in lens paper and entirely submitted for microscopic examination, 2 pieces in cassette A. ([facility]) Copies To Cristel Levine MD [facility] [address] [place], [place] [id number] Aixa Valladares CNM [facility] Women's Services [address] [place] [address] NOTE: Unless otherwise stated, all tissue is formalin-fixed and paraffin-embedded. Some or all of the immunohistochemical tests reported herein may have been developed and their performance characteristics determined by [facility]. They have not been cleared or approved by the U.S. Food and Drug Administration (FDA). However, the FDA has determined that such clearance or approval is not necessary. This laboratory is certified under the Clinical Laboratory Improvement Amendments of Patient: Ibeth Farley Age/Sex: 64/F MR#: [id number] Page 1 of 2 Surgical Pathology [id number] 1987 (CLIA) as qualified to perform high complexity clinical laboratory testing. Electronically Signed By: Trip Romo MD 06/06/25 8247 Patient: Ibeth Farley Age/Sex: 64/F MR#: [id number] Page 2 of 2 Assessment & Plan Assessment & Plan (1) Encounter to discuss test results: Code(s): Z71.2 - Person consulting for explanation of examination or test findings Plan Discussed: Pap smear findings- Interpretation Satisfactory for evaluation. Negative for intraepithelial lesion or malignancy. Atrophic. Scant cellularity. HPV High Risk: Negative HPV Genotyping 16: Negative HPV Genotyping 18: Negative Polypectomy findings- Diagnosis Cervix, polypectomy: - Scant superficial fragments of endocervical and atrophic squamous epithelium; no atypia identified. - Mucoinflammatory material. - No polyp forming lesion identified. Patient was reassured the test results were normal and that the high-risk HPV was part of the report but not the results which were negative. Advised to call if there is any postmenopausal spotting or bleeding for sooner evaluation. She has scheduled her annual exam for 1 year. The patient expressed understanding and agreement with the plan of care. All of her questions and concerns were addressed to the best of my ability. This note is constructed using voice recognition software. While every effort has been made to ensure accuracy, ring cutter lathe operator errors may have been included. Coding Level of Care Code Est Pt Level 3 (71290) Diagnoses Encounter to discuss test results Z71.2
--- OUTSIDE RECORDS SUMMARY | 2025-06-17 16:26 | XMS_ITS | Clinical Summary ---
Author Organization [facility] Address [address] [place] [address] Care Team Providers Care Truck Shop Mechanic Name Role Phone Unavailable Primary Care Provider [...] Screening 1960 Diabetes Screening 1960 HPV Screening (self-collect) 1960 HPV Screening 1960 Hepatitis C Screening [...] Recombinant (2 of 2) 08/03/2022 06/08/20 22 Alcohol and Drug Screen 08/21/2024 Depression Annual Screen 08/21/2024 [id number] ( season) 2025 06/08/2022, 03/08/2022, 12/31/2021, Additional history exists Imm-Influenza (#1) 2025 06/08/2022 Cervical Ablation/Cold-Knife Conization Discontinued Cervical Cryotherapy Discontinued Colposcopy Discontinued Excision/Leep Discontinued HPV Genotyping Discontinued Vaginal Pap Discontinued Vulvoscopy Discontinued [facility] Subscriber Plan / Payer (Ef fective 2022-Present) Name:Ibeth Farley Relation to Subscriber:Self Name:Ibeth Farley Payer ID:[id number] Group ID:Not on file Type:Gianfrancoemdanitamary Address: [facility] [address] [place] [address]
--- OUTSIDE RECORDS SUMMARY | 2025-06-17 16:26 | XMS_ITS | Clinical Summary ---
Author Organization [facility] [address] [facility] [address] Address [address] [place] [address] Phone Care Team Providers Care Senior Data Architect Name Role Phone Unavailable Primary Care Provider Unavailabl e Encounters Date Type Department Care Team Description 04/02/2025 Telephone Gastroenterology - [address] [address] Cristel Huerta MD from Last [...]
--- OUTSIDE RECORDS SUMMARY | 2025-06-17 16:26 | XMS_ITS | Patient Health Record ---
Author Organization [facility] Address [address] [facility] [address] [place] [address] Support Name Relationship Address Phone OUMAR RODAS Guarantor Unknown [phone] Reason For Referral No Information Problems Problem Type SNOMED Code ICD Code Onset Dates Problem Status W/U Status Risk Notes Problem Menopausal symptom (64553051) Symptomatic menopausal or female climacteric states (627.2) Active confirmed Diag Problem Gynecological examination normal (731239242067194) Routine gynecological examination (V72.31) Active confirmed Major Plan Of Treatment No Information Insurance Providers Payer Name Payer Address Payer Phone Subscriber Number Group Number Insured Name Patient Relationship to Insured Coverage Start Date Coverage End Date [address] [place] [address] [phone] [id number] OUMAR LONDON Self - patient is the insured
== END 2025-06-17 15:06 | disposition home or self-care (01) ==
LOC: HO.HWS 13:00
PROVIDERS: PCP Internal Medicine; Visit Provider Advanced Practice Midwife
DX: Z71.2 Person consulting for explanation of examination or test findings (principal)
CPT/HCPCS: 99213

== ENCOUNTER 2025-07-09 08:19 | Day surgery (SDC) | payer OTHER, SELFPAY ==
--- OUTSIDE RECORDS SUMMARY | 2025-05-21 10:17 | XMS_ITS | Clinical Summary ---
Author Organization [facility] Address [address] [place] [address] Care Team Providers Care Jetting Machine Operator Name Role Phone Unavailable Primary Care Provider [...] Imm-Zoster, Recombinant (2 of 2) 08/03/2022 06/08/20 Alcohol and Drug Screen 08/21/2024 Depression Annual Screen 08/21/2024 [id number] ( season) 2025 06/08/2022, 03/08/2022, 12/31/2021, Additional history exists Imm-Influenza (#1) 2025 06/08/2022 Cervical Ablation/Cold-Knife Conization Discontinued Cervical Cryotherapy Discontinued Colposcopy Discontinued Endometrial Biopsy Discontinued Excision/Leep Discontinued HPV Genotyping Discontinued Vaginal Pap Discontinued Vulvoscopy Discontinued Insurance [employer] Member Subscriber Plan / Payer (Ef fective 2022-Present) Name:Ibeth Farley Relation to Subscriber:Self Name:Ibeth Farley Payer ID:[id number] Group ID:Not on file Type:Jass Address: [facility] [address] [place] [address]
--- OUTSIDE RECORDS SUMMARY | 2025-05-21 10:18 | XMS_ITS | Clinical Summary ---
Author Organization [facility] [address] Address [address] [place] [address] Phone Care Team Providers Care Sign Poster Name Role Phone Unavailable Primary Care Provider Unavailabl e Encounters Date Type Department Care Team Description 04/02/2025 Telephone Gastroenterology - [address] [address] Cristel Huerta MD from Last 3 Months Social History Tobacco Use Types Packs/Day Years Used Date Smoking Tobacco: Never Assessed Comments Unknown Sex and Gender Information Value Date Recorded Sex Assigned at Not on file Legal Sex Female 8:54 AM EST Gender Identity Not on file Sexual Orientation Not on file Plan of Treatment Health Maintenance Due Date Last Done Comments Breast Cancer Screening 1961 Colorectal Cancer Screening: Colonoscopy 1961 DTaP,Tdap,and Td Vaccines (1 - Tdap) 1980 Cervical Cancer Screening: P ap Smear 1982 Pneumococcal Vaccine: 50+ Ye ars (1 of 1 - PCV) 2011 Zoster Vaccines (1 of 2) 2011 Depression Screening 08/21/2024 HIV Screening 10/09/2024 Hepatitis C Screening 10/09/2024 Social Influencers of Health Screening 10/09/2024 COVID-19 Vaccine (1 - 2023-2 5 season) 2025 Influenza Vaccine (#1) 2025 RSV Immunization Adult Patie nts (1 - 1-dose 75+ series) 2036 HIB Vaccines Aged Out No longer eligi ble based on patient's age to complete this topic HPV Vaccines Aged Out No longer eligi ble based on patient's age to complete this topic Hepatitis A Vaccines Aged Out No long er eligible based on patient's age to complete this topic Hepatitis B Vaccines Aged Out No long er eligible based on patient's age to complete this topic IPV Vaccines Aged Out No longer eligi ble based on patient's age to complete this topic MMR Vaccines Aged Out No longer eligi ble based on patient's age to complete this topic Meningococcal ACWY Vaccine Aged Out N o longer eligible based on patient's age to complete this topic Meningococcal B Vaccine Aged Out No l onger eligible based on patient's age to complete this topic RSV Immunization Patients Un dixie 20 months Aged Out No longer eligible b ased on patient's age to complete this topic Varicella Vaccines Aged Out No longer eligible based on patient's age to complete this topic
--- OUTSIDE RECORDS SUMMARY | 2025-05-21 10:18 | XMS_ITS | Patient Health Record ---
Author Organization [facility] Address [address] [place] [address] Support Name Relationship Address Phone OUMAR RODAS Guarantor Unknown Reason For Referral No Information Problems Problem Type SNOMED Code ICD Code Onset Dates Problem Status W/U Status Risk Notes Problem Menopausal symptom (08104747) Symptomatic menopausal or female climacteric states (627.2) Active confirmed Diag Problem Gynecological examination normal (724396892922302) Routine gynecological examination (V72.31) Active confirmed Major Plan Of Treatment No Information Insurance Providers Payer Name Payer Address Payer Phone Subscriber Number Group Number Insured Name Patient Relationship to Insured Coverage Start Date Coverage End Date [address] [place] [address] [phone] [id number] OUMAR LONDON Self - patient is the insured
[2025-07-09 09:05] VITALS: BMI 27.1
[2025-07-09 09:12] VITALS: BP 143/72; PULSE 72; RESP 16; TEMP 37.3; O2SAT 98
[2025-07-09] MEDS: Lactated Ringers 1,000 ML 100 ML IVCONT (09:17)
--- NOTE | 2025-07-09 09:44 | MHC.SHP ---
Pre-Procedural Eval Section A - 24 Hr Update-Section A only Date of Service: 07/09/25 Section B - Complete if H&P > 30 days Chief Complaint: screening Relevant Family History (Specify if Yes): Yes Relevant Social History: None Present Medications: see Short Stay Collaborative assessment Medical History: Significant History (vitamin-D deficiency, hyperlipidemia, hypertension, post-polio syndrome) History of Previous Operations: Relevant previous surgery/procedure and date(s) (colonoscopy) Allergies: Allergies Allergy/AdvReac Type Severity Reaction Status Date / Time No Known Allergies (No Known Allergy Verified 06/17/25 13:06 Allergies*) Review of Systems Sugical H&P ROS: Negative: Constitution, Cardiovascular, Respiratory, Neurological, Psychiatric, Hem-Onc, Allergic/Immunologic, Gastrointestinal, Genitourinary, Musculoskeletal, Integumentary, Endocrine and Eyes/Ears/Nose/Throat Exam Surgical H&P Exam: Normal: HEENT, Normal: Heart, Normal: Lungs, Normal: Extremities, Normal: Abdomen, Normal: Skin and Normal: Neurological Plan Diagnosis/Plan: Unchanged I have reviewed the history and physical and performed a pertinent physical examination on my patient. No changes have occurred unless specified. Time Spent With Patient Time: Total time managing care of this patient today ____ minutes.
--- NOTE | 2025-07-09 09:45 | P.CONAN_ITS ---
Documented by User: Reyna Gill NP 07/07/25 10:17 HPI - Anesthesia Eval Consult details Narrative: 64yo F for Upper Endoscopy and Colonoscopy PMFSH Active Problems Active Problems: All Active Problems Encounter for well woman exam with routine gynecological exam (Acute) Vitamin D deficiency (Acute) Trochanteric bursitis of right hip (Acute) Hip pain, right (Acute) Annual physical exam (Acute) Hyperlipidemia (Acute) HTN (hypertension) (Acute) Heart murmur (Acute) Hx of post-polio syndrome (Acute) Hx of colonoscopy (Acute) Hx of screening mammography (Acute) Normal pelvic exam (Acute) Past Medical History Medical History High blood pressure High cholesterol Family History Family History Brother Mental health disorder Mother Ovarian ca Maternal Grandmother Colon cancer Sister Stomach cancer Surgical History Surgical History Hx of hemorrhoidectomy Social History Social History Household Members Other:: , 1 adult son, disabled Housing: House Are you a primary home care administrator to a significant other at home: No Do you presently have visiting nurse or other home services: No Patient Tobacco Use Status: Never used Tobacco e-Cigarette/Vaping Use: Never Used Second Hand Smoke Exposure: No Use of substances other than those prescribed or required for medical reasons: No Have you been hit, kicked, punched, or otherwise hurt by someone within the past year? If so, by whom?: No Are you DNR?: No Advance Directives: No Advance Directives Information Provided: Yes Advance Directives on File: No Patient : No : No service: No Current occupational status: disabled Cognitive needs: No Hearing needs: No Vision needs: Yes Meds Allergies Allergy/AdvReac Type Severity Reaction Status Date / Time No Known Allergies (No Known Allergy Verified 06/17/25 13:06 Allergies*) Assessment and Plan Assessment Anesthesia Assessment: Chart Reviewed Documented by User: Vanesa Carney DO 07/09/25 09:57 [facility] Past Medical History Medical History High blood pressure High cholesterol Family History Family History Brother Mental health disorder Mother Ovarian ca Maternal Grandmother Colon cancer Sister Stomach cancer Family history of problems with anesthesia: No Surgical History Surgical History Hx of hemorrhoidectomy History of Problems with Anesthesia: No Social History Social History Household Members Other:: , 1 adult son, disabled Housing: House Are you a primary home care administrator to a significant other at home: No Do you presently have visiting nurse or other home services: No Patient Tobacco Use Status: Never used Tobacco e-Cigarette/Vaping Use: Never Used Second Hand Smoke Exposure: No Use of substances other than those prescribed or required for medical reasons: No Have you been hit, kicked, punched, or otherwise hurt by someone within the past year? If so, by whom?: No Are you DNR?: No Advance Directives: No Advance Directives Information Provided: Yes Advance Directives on File: No Patient : No : No service: No Current occupational status: disabled Cognitive needs: No Hearing needs: No Vision needs: Yes Meds Allergies Allergy/AdvReac Type Severity Reaction Status Date / Time No Known Allergies (No Known Allergy Verified 06/17/25 13:06 Allergies*) Exam Exam Date and Time: 07/09/25944 Height,Weight and Vital Signs: Height 5 ft 2 in Weight 67.132 kg Vital Signs Temperature 99.1 F 07/09/25 09:12 Pulse Rate 72 07/09/25 09:12 Respiratory Rate 16 07/09/25 09:12 Blood Pressure 143/72 H 07/09/25 09:12 Pulse Oximetry 98 07/09/25 09:12 Oxygen Delivery Method Room Air 11/19/25 09:12 Temperature 99.1 F 07/09/25 09:12 Pulse Rate 72 07/09/25 09:12 Respiratory Rate 16 07/09/25 09:12 Blood Pressure 143/72 H 07/09/25 09:12 Pulse Oximetry 98 07/09/25 09:12 Oxygen Delivery Method Room Air 07/09/25 09:12 Airway Mallampati Class: I TM Dist: >3cm Neck ROM: Full Loose/Missing/Broken Teeth: No (patient denies any loose or broken teeth) Heart: S1S2 Lungs: CTAB Assessment and Plan Assessment Anesthesia Assessment: Anesthesia Plan Discussed and Chart Reviewed Final Anesthetic Review Family History of Problems with Anesthesia: No History of Problems with Anesthesia: No NPO: Yes ASA Class: II Final Preanesthetic Review: No Changes in Pt Med Stat, Meds/Allgs Chart Reviewed, Consent Obtained/Reviewed and Anes Risks/Benef Reviewed Patient Risk: Low Procedure Risk: Low Anesthetic Plan Anesthetic Plan: MAC: and Agree w/ Assess. and Plan Disposition: Standard PACU
--- NOTE | 2025-07-09 10:12 | HO.OPN-COLON ---
Colonoscopy Operative Note Operative Note Date of Service: 07/09/25 Narrative: Operative Information Procedure Description: Colonoscopy Indication: Screening Anesthesia: MAC COLONOSCOPY Instrument: Olympus variable stiffness pediatric scope 190L Colonoscopy Monitoring: Vital signs and clinical assessment, continuous EKG monitoring, Pulse oximetry, Carbon Dioxide monitoring and blood pressure monitoring were done throughout the procedure. Colon withdrawal time was 7 minutes. Procedure: The patient was placed in the left lateral decubitis position and pre-procedure medications were administered. After a digital rectal examination of the ano-rectum, the video colonoscope was inserted into the rectum and advanced through the colon to the cecum/TI. The colonoscope was slowly withdrawn in a retrograde panoramic fashion and the colon mucosa was carefully examined including a retroflexed view of the rectum. Findings and interventions are described below. Procedure Difficulty: easy Findings: Terminal Ileum-normal Cecum:normal Right sided retroflexion- normal Ascending Colon: normal Transverse Colon -normal Descending Colon:normal Sigmoid Colon: normal Rectum: Retroflexion with medium sized internal hemorrhoids seen, grade I Anorectum - normal Intervention: none Colon preparation: Newton Bowel Preparation Scale Right colon; 3 Transverse colon: 3 Left colon; 3 (0 = Unprepared colon segment with mucosa not seen due to solid stool that cannot be cleared. 1 = Portion of mucosa of the colon segment seen, but other areas of the colon segment not well seen due to staining, residual stool and/or opaque liquid. 2 = Minor amount of residual staining, small fragments of stool and/or opaque liquid, but mucosa of colon segment seen well. 3 = Entire mucosa of colon segment seen well with no residual staining, small fragments of stool or opaque liquid) Impression and Post Procedure Diagnosis: internal hemorrhoids Plan: High fiber diet leaflet Avoid straining at stool, epsom salts and sitz bath, anusol supps or cream Repeat Colonoscopy in 10 years or earlier if clinically indicated Above findings were reviewed with the patient and relevant handouts were provided if indicated.
[2025-07-09 10:15] VITALS: BP 89/50; PULSE 68; RESP 16; TEMP 36.1; O2SAT 97
[2025-07-09 10:20] VITALS: BP 94/54; PULSE 63; RESP 14; O2SAT 99
[2025-07-09 10:25] VITALS: BP 105/60; PULSE 73; RESP 14; O2SAT 100
[2025-07-09 10:30] VITALS: BP 106/64; PULSE 65; RESP 19; TEMP 36.4; O2SAT 99
[2025-07-09 10:35] VITALS: BP 115/67; PULSE 64; RESP 19; O2SAT 99
== END 2025-07-09 11:21 | disposition home or self-care (01) ==
PROVIDERS: PCP Internal Medicine; Visit Provider Internal Medicine Gastroenterology
PROC: 0DJD8ZZ Inspection of Lower Intestinal Tract, Via Natural or Artificial Opening Endoscopic (ICD-10-PCS; CPT 45378; principal; 2025-07-09 10:20)
DX: Z12.11 Encounter for screening for malignant neoplasm of colon (principal); K64.0 First degree hemorrhoids
CPT/HCPCS: 45378; J2704

== ENCOUNTER → 2025-07-09 08:19 | Outpatient (BNV) | payer OTHER, SELFPAY | PROVIDERS: PCP Internal Medicine; Visit Provider Internal Medicine Gastroenterology | DX: Z12.11 Encounter for screening for malignant neoplasm of colon (principal); K64.0 First degree hemorrhoids | CPT/HCPCS: 45378 ==

== ENCOUNTER 2025-07-25 11:18 | Outpatient (REF) | payer MEDICARE, SELFPAY ==
[2025-07-25 13:04] LABS: MANUAL DIFF FLAG NO
[2025-07-25 13:22] LABS: Hematocrit 39.5 % (37.0-47.0); Hemoglobin 12.9 g/dl (12.0-16.0); Imm Gran Abs Auto 0.02 X10*3/uL (0.00-0.03); Imm Gran Pct Auto 0.3 % (0.0-0.4); Lymphocytes Absolute Auto 2.2 X10*3/uL (1.2-4.9); Mean Corpuscular HGB Conc 32.7 g/dl (31.0-35.0); Mean Corpuscular Hemoglobin 30.9 pg (27.0-33.0); Mean Corpuscular Volume 94.5 fL (80.0-98.0); NRBC Abs Auto 0.000 X10*3/uL (0.0-0.012); NRBC Pct Auto 0.0 /100WBC (0.0-0.2); Platelet Count 431 X10*3/uL (160-400); Red Blood Count 4.18 X10*6/uL (4.20-5.50); White Blood Count 6.5 X10*3/uL (4.8-10.8)
--- OUTSIDE RECORDS SUMMARY | 2025-07-25 13:56 | XMS_ITS | Clinical Summary ---
Author Organization [facility] [address] [facility] Address [address] [place] [address] Phone Care Team Providers Care Director Of Science Name Role Phone Unavailable Primary Care Provider Unavailabl e Social History Tobacco Use Types Packs/Day Years [...] Health Screening 10/09/2024 COVID-19 Vaccine (1 - 2024-2 6 season) 2025 Influenza Vaccine (#1) 2025 RSV [...]
[2025-07-25 14:19] LABS: Alanine Aminotransferase 24 U/L (0-31); Albumin Level 4.6 g/dL (3.5-5.0); Alkaline Phosphatase 100 U/L (39-117); Anion Gap 10 (12-20); Aspartate Amino Transferase 28 U/L (5-31); Blood Urea Nitrogen 12 mg/dL (9-16); Calcium 9.3 mg/dL (8.4-10.2); Carbon Dioxide 28 mmol/L (22-29); Chloride 106 mmol/L (96-108); Cholesterol 181 mg/dL (<200); Estimated Glomerular Filt Rate > 60; HDL Cholesterol 67 mg/dL (>40); Potassium 4.0 mmol/L (3.3-5.1); Sodium 140 mmol/L (135-145); Total Protein 7.5 g/dL (6.5-8.0); Triglycerides 73 mg/dL (<150)
== END 2025-07-25 11:19 | disposition home or self-care (01) ==
LOC: HO.HMGCLDS 11:18
PROVIDERS: PCP Internal Medicine; Visit Provider Internal Medicine
DX: Z00.00 Encounter for general adult medical examination without abnormal findings (principal); E78.5 Hyperlipidemia, unspecified; E55.9 Vitamin D deficiency, unspecified
CPT/HCPCS: 36415; 80053; 80061; 82306; 84443; 85025

== ENCOUNTER 2025-07-28 13:02 | Outpatient (AMB) | payer OTHER, SELFPAY ==
--- NOTE | 2025-07-28 13:19 | A.OFFPC_ITS ---
Vital Signs 07/28/25 13:25 Height 5 ft 2 in Weight 146 lb BMI 26.7 BP 136/80 Blood Pressure Location Lt brachial Position Sitting Respiration 17 Pulse 81 Pulse Source Pulse Oximeter Pulse Oximetry (%) 97 Oxygen Delivery Method Room Air Intake Visit Reasons: Annual PE Intake Note: Pt is here today for PE. Allergies No Known Allergies (No Known Allergies*) Allergy (Verified 07/28/25 13:29) Medication List - Last Reconciled 07/28/25 by Cristel Levine MD amlodipine 5 mg PO DAILY atorvastatin 20 mg PO DAILY bisacodyl (Dulcolax (bisacodyl)) 20 mg (4 x 5 mg) PO ONCE 1 day metoprolol succinate ER 100 mg PO DAILY polyethylene glycol 3350 (Miralax) 238 grams PO ONCE valsartan 160 mg PO DAILY Tobacco use date assessed: 07/28/25 Dental Screening Dental Screen Date: 07/28/25 Did you have a dental visit in the last 12 months?: Yes Did you have a dental problem in the last 6 months where you did not have access to dental care?: No Was dental information given to patient?: Patient has dentist HPI Annual PE HPI Details [facility] Medical History (Updated 07/28/25 @ 14:15 by Cristel Levine MD) Annual physical exam Hx of post-polio syndrome Hx of screening mammography Normal pelvic exam Hyperlipidemia Heart murmur HTN (hypertension) High blood pressure High cholesterol Surgical History Hx of colonoscopy Hx of hemorrhoidectomy Family History Brother Mental health disorder Mother Ovarian ca Maternal Grandmother Colon cancer Sister Stomach cancer Social History Household Members Other:: , 1 adult son, disabled Housing: House Are you a primary child care sitter to a significant other at home: No Do you presently have visiting nurse or other home services: No Patient Tobacco Use Status: Never used Tobacco e-Cigarette/Vaping Use: Never Used Second Hand Smoke Exposure: No service: No Current occupational status: disabled Cognitive needs: No Hearing needs: No Vision needs: Yes Questionnaire PHQ-9 Over the last 2 weeks, how often have you been bothered by any of the following problems? 1. Little interest or pleasure in doing things: several days 2. Feeling down, depressed, or hopeless: several days 3. Trouble falling or staying asleep, or sleeping too much: several days 4. Feeling tired or having little energy: nearly every day 5. Poor appetite or overeating: not at all 6. Feeling bad about yourself - or that you are a failure or have let yourself or your family down: several days 7. Trouble concentrating on things, such as reading the newspaper or watching television: not at all 8. Moving or speaking so slowly that other people could have noticed. Or the opposite - being so fidgety or restless that you have been moving around a lot more than usual: not at all 9. Thoughts that you would be better off or of hurting yourself in some way: not at all Total score: 7 Depression Screening Interpretation: Negative Depression Screening Done: Yes 65873 - PHQ-9 Billing: Yes Source: Developed by Drs. Russell Lockett, Sharmila De Leon, Aaron Morataya and colleagues, with an educational mora from [employer]. Thrive Questionnaire Date Thrive assessed: 07/28/25 I am a: Patient What is your living situation today?: I have a steady place to live Within the past 12 months, did the food you bought not last and you didn't have the money to get more?: Never true Within the past 12 months, did you worry whether your food would run out before you got money to buy more?: Never true Do you have trouble paying for medicines?: No Do you have trouble getting transportation to medical appointments?: No Do you have trouble paying your heating and electricity bill?: No Do you have trouble taking care of your child, family member or friend?: No Do you have trouble with day-to-day activities such as bathing, preparing meals, shopping, managing finances, etc.?: No Are you currently unemployed and looking for a job?: I choose not to answer this question Are you interested in more education?: No Please select the resources that you would like help with: None Currently or been in a relationship where the following occur: No concerns reported THRIVE Score: 0 AUDIT C Alcohol Use Questionnaire (AUDIT-C) 1. How often do you have a drink containing alcohol?: Never Total Score: 0 VICKI-7 AMB Questionnaire VICKI-7 Date VICKI - 7 assessed: 07/28/25 Feeling nervous, anxious, or on edge: 0 = Not at all Not being able to stop or control worryin = Not at all Worrying too much about different things: 1 = Several days Trouble relaxin = Not at all Being so restless that it is hard to sit still: 0 = Not at all Becoming easily annoyed or irritable: 0 = Not at all Feeling afraid as if something awful might happen: 0 = Not at all Total VICKI-7 score (0-4 normal; 5-9 mild; 10-14 moderate; 15-21 severe): 1 Source: Developed by Drs. Russell Lockett, Sharmila De Leon, Aaron Morataya and colleagues, with an educational mora from [employer]. VICKI-7 Assessment Billing VICKI-7 Assessment Tool: VICKI-7 Assessment 49255 Review of Systems Const All systems reviewed & are unremarkable except as noted in HPI and below Eyes Reports no additional complaints ENT Reports no additional complaints Card Reports no additional complaints Resp Reports no additional complaints GI Reports no additional complaints Reports no additional complaints Physical exam (Primary Care) Vital Signs: Last Vital Signs Pulse 81 07/28/25 13:25 Resp 17 07/28/25 13:25 BP 136/80 07/28/25 13:25 Pulse Ox 97 07/28/25 13:25 Oxygen Delivery Method Room Air 07/28/25 13:25 BMI result Body Mass Index 26.7 Tobacco/Smoking Status: Tobacco use Status Tobacco use date assessed 07/28/25 07/28/25 13:30 Patient Tobacco Use Status Never used Tobacco 07/28/25 13:19 e-Cigarette/Vaping Use Never Used 07/28/25 13:19 PHQ-9: PHQ-9 Score PHQ-9: Total score 7 07/28/25 13:30 Depression Screening Interpretation: Negative Thrive Assessment: Date of Thrive Assessment Date Thrive assessed 07/28/25 07/28/25 13:30 Currently or been in a relationship where the following occur: No concerns reported Const General: no acute distress HENMT Head: Yes normal to inspection Face and sinus: Yes normal facial exam Throat: Yes posterior oropharynx normal Eyes General: appearance normal, both eyes and all related structures Resp Effort & Inspection: normal respiratory effort Auscultation: clear to auscultation bilaterally Cardio Rhythm: regular rhythm Heart sounds: S1 normal heart sound present and S2 normal heart sound present GI Inspection: Yes normal to inspection Palpation (GI): Soft to palpation Percussion: Yes normal to percussion Auscultation: normal bowel sounds Office Procedures Flu Questionnaire Does the patient have a severe egg allergy?: No Does the patient have severe life threatening allergies?: No Does the patient have a fever or illness today?: No Has the patient ever had Guillain-Hume Syndrome?: No Has the patient ever had any past reaction to a flu shot?: No Immunizations Fluarix [id number] (PF) 45 mcg (15 mcg x 3)/0.5 mL IM syringe Performing Provider: Cristel Levine MD Performing Location: [facility] Administered by: NASIM Garcia on 07/28/25 14:12 Dose Route Admin Location Dispensed Lot Number Expiration Date N[employer] Fabric Normalizer 0.5 mL IM Left Deltoid 0.5 mL [id number] 02/17/26 [id number] [place] VIS Given Date VIS Provided VIS Publication Date 07/28/25 Single Vaccine 24 Eligibility Eligibility Date Funding Source Not [facility] Eligible 07/28/25 Private Coding Level of Care Code Est Pt Prev Care 40-64y(43447) Diagnoses HTN (hypertension) I10 Hyperlipidemia E78.5 Annual physical exam Z00.00 Additional Codes VICKI-7 Assessment Billing - VICKI-7 Assessment Tool: VICKI-7 Assessment 21520 ([id number]) PHQ-9 - 22421 - PHQ-9 Billing: Yes ([id number]) Assessment & Plan Assessment & Plan (1) HTN (hypertension): Code(s): I10 - Essential (primary) hypertension Category: Medical Plan: Continue current medications (2) Hyperlipidemia: Code(s): E78.5 - Hyperlipidemia, unspecified Category: Medical Plan: Continue statin (3) Annual physical exam: Code(s): Z00.00 - Encounter for general adult medical examination without abnormal findings Category: Medical Plan: Well-balanced diet regular physical activity discussed with the patient. She is up-to-date with the Pap smear by pipe coverer mammogram and colonoscopy. Orders: Orders Comprehensive [place]. Panel Fast 1 Year E55.9 - Vitamin D deficiency, unspecified, E78.5 - Hyperlipidemia, unspecified, I10 - Essential (primary) hypertension, Z00.00 - Encounter for general adult medical examination without abnormal findings Vitamin B12 and Folate 1 Year E55.9 - Vitamin D deficiency, unspecified, E78.5 - Hyperlipidemia, unspecified, I10 - Essential (primary) hypertension, Z00.00 - Encounter for general adult medical examination without abnormal findings UA w Microscopic 1 Year E55.9 - Vitamin D deficiency, unspecified, E78.5 - Hyperlipidemia, unspecified, I10 - Essential (primary) hypertension, Z00.00 - Encounter for general adult medical examination without abnormal findings Influenza [id number] Immunization Today Z23 - Encounter for immunization Complete Blood Count Auto Diff 1 Year E55.9 - Vitamin D deficiency, unspecified, E78.5 - Hyperlipidemia, unspecified, I10 - Essential (primary) hypertension, Z00.00 - Encounter for general adult medical examination without abnormal findings Lipid Panel 1 Year E55.9 - Vitamin D deficiency, unspecified, E78.5 - Hyperlipidemia, unspecified, I10 - Essential (primary) hypertension, Z00.00 - Encounter for general adult medical examination without abnormal findings TSH reflex Free T4 1 Year E55.9 - Vitamin D deficiency, unspecified, E78.5 - Hyperlipidemia, unspecified, I10 - Essential (primary) hypertension, Z00.00 - Encounter for general adult medical examination without abnormal findings Vitamin D 25-OH Total 1 Year E55.9 - Vitamin D deficiency, unspecified, E78.5 - Hyperlipidemia, unspecified, I10 - Essential (primary) hypertension, Z00.00 - Encounter for general adult medical examination without abnormal findings
[2025-07-28 13:25] VITALS: BP 136/80; PULSE 81; RESP 17; O2SAT 97; BMI 26.7
--- OUTSIDE RECORDS SUMMARY | 2025-07-28 21:48 | XMS_ITS | Clinical Summary ---
Author Organization [facility] [address] [facility] Address [address] [place] [address] Phone Care Team Providers Care Striper Spray Gun Name Role Phone Unavailable Primary Care Provider [...]
== END 2025-07-28 14:30 | disposition home or self-care (01) ==
LOC: HO.HMCC 13:03
PROVIDERS: PCP Internal Medicine; Visit Provider Internal Medicine
DX: Z00.00 Encounter for general adult medical examination without abnormal findings (principal); I10 Essential (primary) hypertension; E78.5 Hyperlipidemia, unspecified; Z23 Encounter for immunization

== ENCOUNTER → 2025-07-28 13:02 | Outpatient (BNVA) | payer OTHER, SELFPAY | PROVIDERS: PCP Internal Medicine; Visit Provider Internal Medicine | DX: Z00.00 Encounter for general adult medical examination without abnormal findings (principal); Z23 Encounter for immunization; I10 Essential (primary) hypertension; E78.5 Hyperlipidemia, unspecified | CPT/HCPCS: 90471; 90656; 96127 ==